=== PATIENT | male | born 1950 | race Caucasian/White ===

== ENCOUNTER 2020-07-29 09:40 | Inpatient (IN) | payer MEDICAID ==
[~2020-07-29] VITALS: Ht 162.6 cm; Wt 49.5 kg
[2020-07-29] MEDS ORDERED: ONDANSETRON HCL 4MG/2ML INJ IV STA (10:19)
[2020-07-29] MEDS ORDERED: SODIUM CHLORIDE 0.9% 1,000 ML IV ONE (10:30)
[2020-07-29] MEDS ORDERED: MECLIZINE 25MG TABLET PO ONE (10:30)
[2020-07-29 11:10] LABS: BASOPHILS % 0.8 % (0.0-2.0); EOSINOPHILS % 3.6 % (0.0-5.0); HEMOGLOBIN. 14.6 g/dL (14.0-18.0); LYMPHOCYTES % 16.4 % (20.0-50.0); MEAN CORPUSCULAR HEMOGLOBIN 31.4 pg (28.0-32.0); MEAN CORPUSCULAR VOLUME 92.7 fL (80.0-94.0); MEAN PLATELET VOLUME 7.6 fl (7.4-10.4); MONOCYTES % 5.6 % (2.0-8.0); NEUTROPHILS % 73.6 % (40.0-76.0); PLATELET 354 x1000/uL (130-400); RED BLOOD CELL COUNT 4.64 mill/uL (4.7-6.1); RED CELL DISTRIBUTION WIDTH 12.8 % (11.6-14.6)
[2020-07-29 11:19] LABS: CHLORIDE 111 mEq/L (98-107)
[2020-07-29 11:23] LABS: ETHANOL BLOOD < 10 mg/dL
[2020-07-29 21:01] LABS: CLARITY URINE CLEAR (CLEAR); COLOR URINE YELLOW (YELLOW); KETONES URINE NEGATIVE (NEGATIVE); LEUKOCYTE ESTERASE URINE NEGATIVE (NEGATIVE); NITRITE URINE NEGATIVE (NEGATIVE); OCCULT BLOOD URINE NEGATIVE (NEGATIVE); PH URINE 7.5 (4.5-8.0); PROTEIN URINE 3+ (NEGATIVE); SPECIFIC GRAVITY URINE 1.017 (1.005-1.030); UROBILINOGEN URINE 0.2 E.U./dL (0.2-1.0)
[2020-07-29 21:17] LABS: *AMPHETAMINES SCREEN URINE NEGATIVE (NEGATIVE); *BARBITURATES SCREEN URINE NEGATIVE (NEGATIVE)
[2020-07-29 21:18] LABS: *BENZODIAZEPINES SCREEN URINE NEGATIVE (NEGATIVE); *COCAINE SCREEN URINE NEGATIVE (NEGATIVE); CANNABINOID URINE SCREEN NEGATIVE (NEGATIVE); METHADONE URINE SCREEN NEGATIVE (NEGATIVE); OPIATES URINE SCREEN NEGATIVE (NEGATIVE); PHENCYCLIDINE URINE SCREEN NEGATIVE (NEGATIVE)
[2020-07-30] VITALS (10 sets, daily range): BP systolic 139–183; BP diastolic 69–100
[2020-07-30] MEDS ORDERED: ATOR-2 PO (04:32)
[2020-07-30] MEDS ORDERED: ASPI-867 MT (04:39)
[2020-07-30] MEDS ORDERED: HYDR25TA PO (04:39)
[2020-07-30] MEDS ORDERED: NIFE-33 PO (04:39)
[2020-07-30] MEDS ORDERED: AMLO-79 MT (04:39)
[2020-07-30] MEDS ORDERED: METO100T16 MT (04:39)
[2020-07-30] MEDS ORDERED: LISI40TA13 PO (04:39)
[2020-07-30] MEDS ORDERED: CLOP75TA33 PO (04:39)
[2020-07-30] MEDS ORDERED: *PATIENT'S OWN MEDICATION STORAGE XX SCH (05:30)
[2020-07-30] MEDS ORDERED: DIPHENHYDRAMINE 50MG CAPSULE PO PRN (06:00)
[2020-07-30] MEDS ORDERED: PNEUMOCOCCAL 23-VAL P-SAC VAC 0.5 ML IM ONE (08:00)
[2020-07-30] MEDS: ASPIRIN 81MG TABLET PO SCH (08:41)
[2020-07-30] MEDS: AMLODIPINE 10MG TABLET PO SCH (08:42)
[2020-07-30] MEDS: LISINOPRIL 40MG TABLET PO SCH (08:42)
[2020-07-30] MEDS: ENOXAPARIN 40MG/0.4ML SYR SUBCUT SCH (08:42)
[2020-07-30] MEDS ORDERED: ASPIRIN 81MG TABLET PO SCH (09:00)
[2020-07-30 09:31] LABS: BASOPHILS % 0.8 % (0.0-2.0); EOSINOPHILS % 1.9 % (0.0-5.0); HEMATOCRIT. 41.4 % (42.0-52.0); HEMOGLOBIN. 14.1 g/dL (14.0-18.0); LYMPHOCYTES % 19.8 % (20.0-50.0); MEAN CORPUSCULAR HEMOGLOBIN 31.4 pg (28.0-32.0); MEAN CORPUSCULAR VOLUME 92.1 fL (80.0-94.0); MEAN PLATELET VOLUME 7.5 fl (7.4-10.4); MONOCYTES % 6.4 % (2.0-8.0); NEUTROPHILS % 71.1 % (40.0-76.0); PLATELET 351 x1000/uL (130-400); RED CELL DISTRIBUTION WIDTH 12.8 % (11.6-14.6)
[2020-07-30 09:39] LABS: CHLORIDE 112 mEq/L (98-107)
[2020-07-30] MEDS ORDERED: INFLUENZA VACCINE 05/PF 0.5 ML VIAL IM ONE (10:00)
[2020-07-30] MEDS: HYDRALAZINE HCL 25MG TABLET PO SCH ×2 (10:43→21:41)
[2020-07-30] MEDS: HYDRALAZINE 20MG/ML VIAL IV PRN (12:14)
[2020-07-30] MEDS: ATORVASTATIN CALCIUM 40MG TABLET PO SCH (21:41)
[2020-07-31] VITALS (15 sets, daily range): BP systolic 131–169; BP diastolic 66–103
[2020-07-31] MEDS: HYDRALAZINE 20MG/ML VIAL IV PRN ×2 (03:48→15:34)
[2020-07-31] MEDS: ACETAMINOPHEN 325MG TABLET PO PRN (05:53)
[2020-07-31] MEDS: ONDANSETRON HCL 4MG/2ML INJ IV PRN (05:54)
[2020-07-31] MEDS: ENOXAPARIN 40MG/0.4ML SYR SUBCUT SCH (09:00)
[2020-07-31 09:21] LABS: BASOPHILS % 0.6 % (0.0-2.0); EOSINOPHILS % 0.5 % (0.0-5.0); HEMATOCRIT. 44.7 % (42.0-52.0); HEMOGLOBIN. 14.8 g/dL (14.0-18.0); LYMPHOCYTES % 9.6 % (20.0-50.0); MEAN CORPUSCULAR HEMOGLOBIN 30.6 pg (28.0-32.0); MEAN CORPUSCULAR VOLUME 92.6 fL (80.0-94.0); MEAN PLATELET VOLUME 7.8 fl (7.4-10.4); MONOCYTES % 5.5 % (2.0-8.0); NEUTROPHILS % 83.8 % (40.0-76.0); PLATELET 355 x1000/uL (130-400); RED BLOOD CELL COUNT 4.83 mill/uL (4.7-6.1); RED CELL DISTRIBUTION WIDTH 12.9 % (11.6-14.6)
[2020-07-31 09:33] LABS: INR 1.1; PROTHROMBIN TIME 11.3 sec (9.6-11.0)
[2020-07-31 09:39] LABS: BG BASE EXCESS -1.3 mmol/L (-2.0-2.0); BG CARBOXYHEMOGLOBIN 0.9 % (0.5-1.5); BG HCO3 ACT 23.2 mmol/L (22.0-26.0); BG METHEMOGLOBIN 0.3 % (0.0-1.5); BG OXYHEMOGLOBIN 96.8 % (94.0-97.0); BG PCO2 38.4 mmHg (35.0-45.0); BG PH 7.399 (7.350-7.450); BG SAMPLE SITE RIGHT RADIAL; BG TOTAL HEMOGLOBIN 15.7 g/dL (12.0-18.0); BG VENT MODE ROOM AIR
[2020-07-31] MEDS: ASPIRIN 81MG TABLET PO SCH (11:30)
[2020-07-31] MEDS: HYDRALAZINE HCL 25MG TABLET PO SCH ×2 (11:30→20:59)
[2020-07-31] MEDS: LISINOPRIL 40MG TABLET PO SCH (11:30)
[2020-07-31] MEDS: AMLODIPINE 10MG TABLET PO SCH (11:30)
[2020-07-31] MEDS: BLOOD SUGAR DIAGNOSTIC STRIP TEST SCH ×3 (12:12→20:59)
[2020-07-31] MEDS: DEXT 5%/0.45% NACL 1000ML 1,000 ML IV SCH (19:00)
[2020-07-31] MEDS: ATORVASTATIN CALCIUM 40MG TABLET PO SCH (20:59)
[2020-07-31] MEDS: METOPROLOL TARTRATE 5MG/5ML VIAL IV SCH ×2 (23:31→23:33)
[2020-08-01] VITALS (17 sets, daily range): BP systolic 121–177; BP diastolic 68–113
[2020-08-01] MEDS: METOPROLOL TARTRATE 5MG/5ML VIAL IV SCH ×5 (05:22→21:28)
[2020-08-01] MEDS: BLOOD SUGAR DIAGNOSTIC STRIP TEST SCH ×4 (06:08→21:40)
[2020-08-01] MEDS: DEXT 5%/0.45% NACL 1000ML 1,000 ML IV SCH ×2 (08:17→21:31)
[2020-08-01 08:55] LABS: CHLORIDE 109 mEq/L (98-107)
[2020-08-01] MEDS: HYDRALAZINE HCL 25MG TABLET PO SCH ×2 (09:00→21:00)
[2020-08-01] MEDS: LISINOPRIL 40MG TABLET PO SCH (09:00)
[2020-08-01] MEDS: AMLODIPINE 10MG TABLET PO SCH (09:00)
[2020-08-01] MEDS: ASPIRIN 81MG TABLET PO SCH (09:00)
[2020-08-01] MEDS: CLOPIDOGREL 75MG TABLET PO SCH (09:00)
[2020-08-01 09:41] LABS: CLARITY URINE CLEAR (CLEAR); COLOR URINE YELLOW (YELLOW); KETONES URINE NEGATIVE (NEGATIVE); LEUKOCYTE ESTERASE URINE TRACE (NEGATIVE); NITRITE URINE NEGATIVE (NEGATIVE); OCCULT BLOOD URINE 3+ (NEGATIVE); PH URINE 6.5 (4.5-8.0); PROTEIN URINE 3+ (NEGATIVE); SPECIFIC GRAVITY URINE 1.016 (1.005-1.030); UROBILINOGEN URINE 0.2 E.U./dL (0.2-1.0)
[2020-08-01] MEDS: ENOXAPARIN 40MG/0.4ML SYR SUBCUT SCH (12:49)
[2020-08-01] MEDS: LACTULOSE 20G/30ML UDC PO SCH ×2 (16:46→22:00)
[2020-08-01 17:57] LABS: BASOPHILS % 0.5 % (0.0-2.0); EOSINOPHILS % 0.1 % (0.0-5.0); HEMATOCRIT. 43.3 % (42.0-52.0); HEMOGLOBIN. 14.4 g/dL (14.0-18.0); LYMPHOCYTES % 7.6 % (20.0-50.0); MEAN CORPUSCULAR HEMOGLOBIN 30.8 pg (28.0-32.0); MEAN CORPUSCULAR VOLUME 92.8 fL (80.0-94.0); MONOCYTES % 4.5 % (2.0-8.0); NEUTROPHILS % 87.3 % (40.0-76.0); PLATELET 330 x1000/uL (130-400); RED BLOOD CELL COUNT 4.67 mill/uL (4.7-6.1); RED CELL DISTRIBUTION WIDTH 12.7 % (11.6-14.6)
[2020-08-01 18:10] LABS: CHLORIDE 107 mEq/L (98-107)
[2020-08-01] MEDS: ATORVASTATIN CALCIUM 40MG TABLET PO SCH (21:00)
[2020-08-02] VITALS (42 sets, daily range): BP systolic 78–205; BP diastolic 45–108
[2020-08-02] MEDS: METOPROLOL TARTRATE 5MG/5ML VIAL IV SCH ×6 (01:49→20:00)
[2020-08-02] MEDS: HYDRALAZINE 20MG/ML VIAL IV PRN (03:34)
[2020-08-02] MEDS: LACTULOSE 20G/30ML UDC PO SCH (06:00)
[2020-08-02] MEDS: BLOOD SUGAR DIAGNOSTIC STRIP TEST SCH ×4 (06:26→21:00)
[2020-08-02 08:41] LABS: BG BASE EXCESS -1.8 mmol/L (-2.0-2.0); BG CARBOXYHEMOGLOBIN 0.8 % (0.5-1.5); BG DEOXYHEMOGLOBIN 2.6 % (0.0-5.0); BG FRACTION INSPIRED OXYGEN 28; BG HCO3 ACT 23.9 mmol/L (22.0-26.0); BG METHEMOGLOBIN 0.3 % (0.0-1.5); BG OXYGEN SATURATION 97.4 % (92.0-98.5); BG OXYHEMOGLOBIN 96.3 % (94.0-97.0); BG PCO2 43.6 mmHg (35.0-45.0); BG PH 7.356 (7.350-7.450); BG PO2 94.4 mmHg (75.0-100.0); BG SAMPLE SITE RIGHT RADIAL; BG TOTAL HEMOGLOBIN 15.2 g/dL (12.0-18.0); BG VENT MODE NASAL CANNULA
[2020-08-02] MEDS: ENOXAPARIN 40MG/0.4ML SYR SUBCUT SCH (09:00)
[2020-08-02] MEDS: LISINOPRIL 40MG TABLET PO SCH (09:00)
[2020-08-02] MEDS: ASPIRIN 81MG TABLET PO SCH (09:00)
[2020-08-02] MEDS: CLOPIDOGREL 75MG TABLET PO SCH (09:00)
[2020-08-02] MEDS: AMLODIPINE 10MG TABLET PO SCH (09:00)
[2020-08-02] MEDS: HYDRALAZINE HCL 25MG TABLET PO SCH ×2 (09:00→20:42)
[2020-08-02 10:53] LABS: HEMATOCRIT. 43.9 % (42.0-52.0); HEMOGLOBIN. 14.6 g/dL (14.0-18.0); MEAN CORPUSCULAR HEMOGLOBIN 31.2 pg (28.0-32.0); MEAN CORPUSCULAR VOLUME 93.9 fL (80.0-94.0); MEAN PLATELET VOLUME 8.5 fl (7.4-10.4); PLATELET 315 x1000/uL (130-400); RED BLOOD CELL COUNT 4.68 mill/uL (4.7-6.1); RED CELL DISTRIBUTION WIDTH 12.7 % (11.6-14.6)
[2020-08-02 10:55] LABS: CHLORIDE 107 mEq/L (98-107)
[2020-08-02] MEDS ORDERED: IOHEXOL-350 100 ML BOTTLE ONE (13:58)
[2020-08-02] MEDS: DEXT 5%/0.45% NACL 1000ML 1,000 ML IV SCH (14:05)
[2020-08-02] MEDS: PIPERACILLIN/TAZOBACTAM 3.375 G in DEXT 5% WATER 100 ML IV SCH ×2 (14:05→18:43)
[2020-08-02 14:24] LABS: PLATELET ESTIMATE NORMAL
[2020-08-02] MEDS ORDERED: LORAZEPAM 2MG/ML CPJ IV PRN (15:15)
[2020-08-02] MEDS: CLONIDINE HCL 0.2MG/24HR PATCH TD SCH (16:00)
[2020-08-02] MEDS ORDERED: RACEPINEPHRINE 2.25% 0.5ML NEB VIAL HHN NR ×2 (16:00→17:00)
[2020-08-02 16:09] LABS: BG BASE EXCESS -1.7 mmol/L (-2.0-2.0); BG CARBOXYHEMOGLOBIN 0.3 % (0.5-1.5); BG DEOXYHEMOGLOBIN 0.8 % (0.0-5.0); BG HCO3 ACT 29.5 mmol/L (22.0-26.0); BG METHEMOGLOBIN 0.4 % (0.0-1.5); BG OXYGEN SATURATION 99.2 % (92.0-98.5); BG OXYHEMOGLOBIN 98.5 % (94.0-97.0); BG PCO2 82.7 mmHg (35.0-45.0); BG PO2 243.1 mmHg (75.0-100.0); BG SAMPLE SITE RIGHT BRACHIAL; BG TOTAL HEMOGLOBIN 15.5 g/dL (12.0-18.0); BG VENT MODE MASK - NRB
[2020-08-02] MEDS ORDERED: RACEPINEPHRINE 2.25% 0.5ML NEB VIAL ONE (16:11)
[2020-08-02] MEDS ORDERED: RACEPINEPHRINE 2.25% 0.5ML NEB VIAL HHN ONE (16:45)
[2020-08-02] MEDS ORDERED: DEXAMETHASONE 10 MG/ML VIAL IV NR (16:45)
[2020-08-02] MEDS: MIDAZOLAM HCL 100 MG in DEXT 5% WATER 80 ML IV PRN (17:00)
[2020-08-02] MEDS: FENTANYL CITRATE/PF 2,500 MCG in SODIUM CHLORIDE 0.9% 200 ML IV PRN (17:01)
[2020-08-02 17:04] LABS: BG BASE EXCESS 1.3 mmol/L (-2.0-2.0); BG CARBOXYHEMOGLOBIN 0.3 % (0.5-1.5); BG DEOXYHEMOGLOBIN 0.6 % (0.0-5.0); BG HCO3 ACT 27.7 mmol/L (22.0-26.0); BG METHEMOGLOBIN 0.1 % (0.0-1.5); BG OXYGEN SATURATION 99.4 % (92.0-98.5); BG PCO2 50.7 mmHg (35.0-45.0); BG PH 7.356 (7.350-7.450); BG PO2 441.3 mmHg (75.0-100.0); BG SAMPLE SITE RIGHT RADIAL; BG TOTAL HEMOGLOBIN 14.5 g/dL (12.0-18.0); BG VENT MODE VENT - AC
[2020-08-02] MEDS ORDERED: PHENYLEPHRINE 100 MG in DEXT 5% WATER 240 ML IV PRN (17:15)
[2020-08-02] MEDS ORDERED: NOREPINEPHRINE 32 MG in DEXT 5% WATER 218 ML IV PRN (17:15)
[2020-08-02] MEDS: METHYLPREDNISOLONE SOD SUCC 125 MG/2 ML VIAL IV SCH (18:43)
[2020-08-02] MEDS ORDERED: DOPAMINE 400MG/250ML PREMIX 250 ML IV ONE (20:14)
[2020-08-02] MEDS ORDERED: DOPAMINE 400MG/250ML PREMIX 250 ML IV PRN (20:45)
[2020-08-02] MEDS ORDERED: LACTULOSE 20G/30ML UDC PO SCH ×2 (21:00)
[2020-08-02] MEDS: ACETYLCYSTEINE 100MG/ML 10% VIAL 4ML INH SCH (21:41)
[2020-08-02] MEDS: IPRATROPIUM/ALBUTEROL 0.5-3(2.5)MG/3ML NEB HHN SCH (21:43)
[2020-08-02] MEDS: ATORVASTATIN CALCIUM 40MG TABLET PO SCH (23:50)
[2020-08-03] VITALS (70 sets, daily range): BP systolic 89–208; BP diastolic 56–96
[2020-08-03] MEDS: METHYLPREDNISOLONE SOD SUCC 125 MG/2 ML VIAL IV SCH ×4 (00:30→18:08)
[2020-08-03] MEDS: IPRATROPIUM/ALBUTEROL 0.5-3(2.5)MG/3ML NEB HHN SCH ×4 (01:37→21:12)
[2020-08-03] MEDS: PIPERACILLIN/TAZOBACTAM 3.375 G in DEXT 5% WATER 100 ML IV SCH ×4 (02:27→18:06)
[2020-08-03] MEDS: METOPROLOL TARTRATE 5MG/5ML VIAL IV SCH ×6 (04:00→20:00)
[2020-08-03] MEDS: BLOOD SUGAR DIAGNOSTIC STRIP TEST SCH ×3 (07:30→18:06)
[2020-08-03 07:46] LABS: HEMOGLOBIN. 13.5 g/dL (14.0-18.0); MEAN CORPUSCULAR HEMOGLOBIN 31.4 pg (28.0-32.0); MEAN PLATELET VOLUME 8.4 fl (7.4-10.4); PLATELET 286 x1000/uL (130-400); RED CELL DISTRIBUTION WIDTH 12.5 % (11.6-14.6)
[2020-08-03] MEDS: ENOXAPARIN 40MG/0.4ML SYR SUBCUT SCH (08:35)
[2020-08-03] MEDS: CLOPIDOGREL 75MG TABLET PO SCH (08:35)
[2020-08-03] MEDS: ASPIRIN 81MG TABLET PO SCH (08:35)
[2020-08-03] MEDS: ACETYLCYSTEINE 100MG/ML 10% VIAL 4ML INH SCH ×3 (08:40→11:36)
[2020-08-03] MEDS: DEXT 5%/0.45% NACL 1000ML 1,000 ML IV SCH ×2 (08:48→12:41)
[2020-08-03] MEDS: AMLODIPINE 10MG TABLET PO SCH (08:50)
[2020-08-03] MEDS: HYDRALAZINE HCL 25MG TABLET PO SCH ×2 (08:50→21:00)
[2020-08-03] MEDS ORDERED: LIDOCAINE HCL 1% 20ML VIAL (Pyxis) INJ ONE (10:11)
[2020-08-03 12:27] LABS: BG CARBOXYHEMOGLOBIN 0.3 % (0.5-1.5); BG DEOXYHEMOGLOBIN 1.2 % (0.0-5.0); BG FRACTION INSPIRED OXYGEN 40; BG METHEMOGLOBIN 0.3 % (0.0-1.5); BG OXYGEN SATURATION 98.8 % (92.0-98.5); BG OXYHEMOGLOBIN 98.2 % (94.0-97.0); BG PCO2 41.2 mmHg (35.0-45.0); BG PH 7.383 (7.350-7.450); BG PO2 141.2 mmHg (75.0-100.0); BG SAMPLE SITE RIGHT RADIAL; BG TOTAL HEMOGLOBIN 13.6 g/dL (12.0-18.0); BG VENT MODE VENT - AC
[2020-08-03] MEDS: SODIUM CHLORIDE 0.45% 1,000 ML IV SCH (18:08)
[2020-08-03] MEDS: FENTANYL CITRATE/PF 2,500 MCG in SODIUM CHLORIDE 0.9% 200 ML IV PRN (18:58)
[2020-08-03] MEDS: ATORVASTATIN CALCIUM 40MG TABLET PO SCH (21:12)
[2020-08-04] VITALS (47 sets, daily range): BP systolic 80–132; BP diastolic 44–77
[2020-08-04 00:15] LABS: PLATELET ESTIMATE NORMAL
[2020-08-04] MEDS: METHYLPREDNISOLONE SOD SUCC 125 MG/2 ML VIAL IV SCH ×4 (00:25→18:53)
[2020-08-04] MEDS: PIPERACILLIN/TAZOBACTAM 3.375 G in DEXT 5% WATER 100 ML IV SCH ×2 (00:25→05:51)
[2020-08-04] MEDS: IPRATROPIUM/ALBUTEROL 0.5-3(2.5)MG/3ML NEB HHN SCH ×4 (02:48→21:00)
[2020-08-04] MEDS: BLOOD SUGAR DIAGNOSTIC STRIP TEST SCH ×4 (06:00→18:40)
[2020-08-04] MEDS: SODIUM CHLORIDE 0.45% 1,000 ML IV SCH ×2 (06:02→19:40)
[2020-08-04 06:37] LABS: HEMATOCRIT. 35.9 % (42.0-52.0); HEMOGLOBIN. 12.2 g/dL (14.0-18.0); MEAN CORPUSCULAR HEMOGLOBIN 31.9 pg (28.0-32.0); MEAN PLATELET VOLUME 8.3 fl (7.4-10.4); PLATELET 325 x1000/uL (130-400); RED BLOOD CELL COUNT 3.82 mill/uL (4.7-6.1); RED CELL DISTRIBUTION WIDTH 12.9 % (11.6-14.6)
[2020-08-04] MEDS: METOPROLOL TARTRATE 5MG/5ML VIAL IV SCH ×5 (08:00→20:00)
[2020-08-04] MEDS: HYDRALAZINE HCL 25MG TABLET PO SCH ×2 (08:57→21:00)
[2020-08-04] MEDS: AMLODIPINE 10MG TABLET PO SCH (08:58)
[2020-08-04] MEDS: ENOXAPARIN 40MG/0.4ML SYR SUBCUT SCH (09:09)
[2020-08-04] MEDS: ASPIRIN 81MG TABLET PO SCH (09:28)
[2020-08-04] MEDS: FENTANYL CITRATE/PF 2,500 MCG in SODIUM CHLORIDE 0.9% 200 ML IV PRN (12:40)
[2020-08-04] MEDS: MIDAZOLAM HCL 100 MG in DEXT 5% WATER 80 ML IV PRN (12:41)
[2020-08-04 13:43] LABS: BG CARBOXYHEMOGLOBIN 0.3 % (0.5-1.5); BG DEOXYHEMOGLOBIN 1.4 % (0.0-5.0); BG FRACTION INSPIRED OXYGEN 40; BG HCO3 ACT 23.1 mmol/L (22.0-26.0); BG OXYGEN SATURATION 98.6 % (92.0-98.5); BG OXYHEMOGLOBIN 98.3 % (94.0-97.0); BG PH 7.328 (7.350-7.450); BG PO2 148.5 mmHg (75.0-100.0); BG SAMPLE SITE RIGHT RADIAL; BG TOTAL HEMOGLOBIN 14.5 g/dL (12.0-18.0); BG VENT MODE VENT - AC
[2020-08-04] MEDS: PIPERACILLIN/TAZOBACTAM 2.25 G in DEXTROSE 5% WATER 50 ML IV SCH ×2 (14:02→18:54)
[2020-08-04] MEDS: ENOXAPARIN 30MG/0.3ML SYR SUBCUT SCH (19:40)
[2020-08-04 20:30] LABS: HEMATOCRIT 36.2 % (42.0-52.0); HEMOGLOBIN 12.1 g/dL (14.0-18.0); MEAN CORPUSCULAR HEMOGLOBIN 30.9 pg (28.0-32.0); PLATELET 341 x1000/uL (130-400); RED CELL DISTRIBUTION WIDTH 12.6 % (11.6-14.6)
[2020-08-04 20:45] LABS: CHLORIDE 102 mEq/L (98-107)
[2020-08-04 20:58] LABS: PLATELET ESTIMATE NORMAL
[2020-08-04] MEDS: ATORVASTATIN CALCIUM 40MG TABLET PO SCH (21:39)
[2020-08-05] VITALS (66 sets, daily range): BP systolic 86–161; BP diastolic 48–96
[2020-08-05] MEDS: BLOOD SUGAR DIAGNOSTIC STRIP TEST SCH ×5 (00:43→20:55)
[2020-08-05] MEDS: PIPERACILLIN/TAZOBACTAM 2.25 G in DEXTROSE 5% WATER 50 ML IV SCH ×4 (01:03→17:59)
[2020-08-05] MEDS: METHYLPREDNISOLONE SOD SUCC 125 MG/2 ML VIAL IV SCH ×4 (01:03→17:59)
[2020-08-05] MEDS: ACETYLCYSTEINE 100MG/ML 10% VIAL 4ML INH SCH ×2 (03:32→09:31)
[2020-08-05] MEDS: METOPROLOL TARTRATE 5MG/5ML VIAL IV SCH ×6 (03:32→20:00)
[2020-08-05] MEDS: IPRATROPIUM/ALBUTEROL 0.5-3(2.5)MG/3ML NEB HHN SCH ×3 (03:33→20:39)
[2020-08-05 06:15] LABS: HEMATOCRIT. 33.7 % (42.0-52.0); HEMOGLOBIN. 11.5 g/dL (14.0-18.0); MEAN CORPUSCULAR HEMOGLOBIN 31.7 pg (28.0-32.0); MEAN CORPUSCULAR VOLUME 93.1 fL (80.0-94.0); MEAN PLATELET VOLUME 8.3 fl (7.4-10.4); PLATELET 308 x1000/uL (130-400); RED BLOOD CELL COUNT 3.62 mill/uL (4.7-6.1); RED CELL DISTRIBUTION WIDTH 12.7 % (11.6-14.6)
[2020-08-05 06:19] LABS: INR 1.1; PROTHROMBIN TIME 11.9 sec (9.6-11.0)
[2020-08-05 07:53] LABS: CHLORIDE 102 mEq/L (98-107)
[2020-08-05] MEDS: FENTANYL CITRATE/PF 2,500 MCG in SODIUM CHLORIDE 0.9% 200 ML IV PRN ×2 (08:04→18:11)
[2020-08-05] MEDS: SODIUM CHLORIDE 0.45% 1,000 ML IV SCH ×2 (08:30→22:48)
[2020-08-05] MEDS: HYDRALAZINE HCL 25MG TABLET PO SCH ×2 (08:34→20:55)
[2020-08-05] MEDS: ASPIRIN 81MG TABLET PO SCH (08:34)
[2020-08-05] MEDS: AMLODIPINE 10MG TABLET PO SCH (08:34)
[2020-08-05 10:26] LABS: SODIUM URINE RANDOM < 5 mEq/L
[2020-08-05] MEDS ORDERED: CEFAZOLIN 1000MG PREMIX 50 ML IV NR (12:00)
[2020-08-05] MEDS ORDERED: MIDAZOLAM HCL 5 MG/5 ML VIAL ONE (14:37)
[2020-08-05] MEDS ORDERED: FENTANYL CITRATE/PF 50MCG/ML 2ML VIAL ONE (14:37)
[2020-08-05] MEDS ORDERED: DIPHENHYDRAMINE 50MG/ML VIAL ONE (14:37)
[2020-08-05 14:47] LABS: PLATELET ESTIMATE NORMAL
[2020-08-05] MEDS ORDERED: DEXTROSE 50% WATER 50ML SYRINGE IV PRN (17:00)
[2020-08-05] MEDS: INSULIN LISPRO 100 UNITS/ML SUBCUT SCH ×2 (18:01→20:55)
[2020-08-05] MEDS: MIDAZOLAM HCL 100 MG in DEXT 5% WATER 80 ML IV PRN (18:12)
[2020-08-05] MEDS: ATORVASTATIN CALCIUM 40MG TABLET PO SCH (20:53)
[2020-08-06] VITALS (96 sets, daily range): BP systolic 90–159; BP diastolic 47–83
[2020-08-06] MEDS: PIPERACILLIN/TAZOBACTAM 2.25 G in DEXTROSE 5% WATER 50 ML IV SCH ×5 (00:37→23:56)
[2020-08-06] MEDS: METHYLPREDNISOLONE SOD SUCC 125 MG/2 ML VIAL IV SCH ×5 (00:37→23:53)
[2020-08-06] MEDS: IPRATROPIUM/ALBUTEROL 0.5-3(2.5)MG/3ML NEB HHN SCH ×3 (01:43→20:33)
[2020-08-06] MEDS: ACETYLCYSTEINE 100MG/ML 10% VIAL 4ML INH SCH ×2 (01:43→08:28)
[2020-08-06] MEDS: METOPROLOL TARTRATE 5MG/5ML VIAL IV SCH ×6 (04:00→20:00)
[2020-08-06] MEDS: METOCLOPRAMIDE HCL 10MG/2ML VIAL IV SCH ×4 (05:41→23:55)
[2020-08-06 06:12] LABS: HEMATOCRIT. 33.1 % (42.0-52.0); HEMOGLOBIN. 11.2 g/dL (14.0-18.0); MEAN CORPUSCULAR HEMOGLOBIN 31.3 pg (28.0-32.0); MEAN CORPUSCULAR VOLUME 92.8 fL (80.0-94.0); MEAN PLATELET VOLUME 8.1 fl (7.4-10.4); PLATELET 317 x1000/uL (130-400); RED BLOOD CELL COUNT 3.56 mill/uL (4.7-6.1); RED CELL DISTRIBUTION WIDTH 12.8 % (11.6-14.6)
[2020-08-06 06:33] LABS: CHLORIDE 105 mEq/L (98-107)
[2020-08-06 06:39] LABS: PHOSPHORUS 4.9 mg/dL (2.5-4.9)
[2020-08-06] MEDS: BLOOD SUGAR DIAGNOSTIC STRIP TEST SCH ×4 (08:00→20:33)
[2020-08-06] MEDS: ENOXAPARIN 30MG/0.3ML SYR SUBCUT SCH (08:25)
[2020-08-06] MEDS: ASPIRIN 81MG TABLET PO SCH ×2 (08:25→09:00)
[2020-08-06] MEDS: INSULIN LISPRO 100 UNITS/ML SUBCUT SCH ×4 (08:26→20:50)
[2020-08-06] MEDS: HYDRALAZINE HCL 25MG TABLET PO SCH ×2 (08:28→20:49)
[2020-08-06] MEDS: AMLODIPINE 10MG TABLET PO SCH (08:28)
[2020-08-06] MEDS: SODIUM CHLORIDE 0.45% 1,000 ML IV SCH (12:30)
[2020-08-06] MEDS ORDERED: MORPHINE SULFATE 10 MG/ML CPJ IV NR (13:00)
[2020-08-06] MEDS ORDERED: LEVETIRACETAM 500 MG in SODIUM CHLORIDE 0.9% 100 ML IV SCH (13:45)
[2020-08-06] MEDS ORDERED: MORPHINE SULFATE 4 MG/ML CPJ (NOT FOR IM USE) IV PRN (13:45)
[2020-08-06] MEDS ORDERED: CEFAZOLIN SODIUM 1000MG/VIAL IV SCH (14:00)
[2020-08-06] MEDS: DEXT 5%/LACTATED RINGERS 1,000 ML IV SCH (14:44)
[2020-08-06 14:52] LABS: PLATELET ESTIMATE NORMAL
[2020-08-06] MEDS: PROPOFOL 10MG/ML 100ML 100 ML IV PRN ×2 (15:28→20:33)
[2020-08-06] MEDS: NICARDIPINE 100 MG in SODIUM CHLORIDE 0.9% 60 ML IV PRN (15:35)
[2020-08-06] MEDS: DEXAMETHASONE 4MG/ML 1ML VIAL IV SCH ×2 (17:01→23:55)
[2020-08-06] MEDS: LEVETIRACETAM 500MG PREMIX 100 ML IV SCH ×2 (17:05→22:53)
[2020-08-06] MEDS: ATORVASTATIN CALCIUM 40MG TABLET PO SCH (20:33)
[2020-08-07] VITALS (70 sets, daily range): BP systolic 103–156; BP diastolic 38–95
[2020-08-07] MEDS: ACETYLCYSTEINE 100MG/ML 10% VIAL 4ML INH SCH ×2 (01:59→09:08)
[2020-08-07] MEDS: IPRATROPIUM/ALBUTEROL 0.5-3(2.5)MG/3ML NEB HHN SCH ×3 (01:59→21:40)
[2020-08-07] MEDS: METOPROLOL TARTRATE 5MG/5ML VIAL IV SCH ×7 (04:00→22:23)
[2020-08-07] MEDS: PROPOFOL 10MG/ML 100ML 100 ML IV PRN ×3 (04:43→19:56)
[2020-08-07 05:22] LABS: PHOSPHORUS 3.3 mg/dL (2.5-4.9)
[2020-08-07] MEDS: DEXAMETHASONE 4MG/ML 1ML VIAL IV SCH ×3 (06:01→17:27)
[2020-08-07] MEDS: PIPERACILLIN/TAZOBACTAM 2.25 G in DEXTROSE 5% WATER 50 ML IV SCH (06:03)
[2020-08-07] MEDS: METOCLOPRAMIDE HCL 10MG/2ML VIAL IV SCH ×3 (06:03→17:27)
[2020-08-07] MEDS: METHYLPREDNISOLONE SOD SUCC 125 MG/2 ML VIAL IV SCH ×3 (06:04→17:26)
[2020-08-07 06:14] LABS: HEMATOCRIT. 32.2 % (42.0-52.0); HEMOGLOBIN. 10.8 g/dL (14.0-18.0); MEAN CORPUSCULAR HEMOGLOBIN 31.3 pg (28.0-32.0); MEAN CORPUSCULAR VOLUME 93.2 fL (80.0-94.0); MEAN PLATELET VOLUME 8.3 fl (7.4-10.4); PLATELET 308 x1000/uL (130-400); RED BLOOD CELL COUNT 3.46 mill/uL (4.7-6.1); RED CELL DISTRIBUTION WIDTH 12.8 % (11.6-14.6)
[2020-08-07] MEDS: BLOOD SUGAR DIAGNOSTIC STRIP TEST SCH ×4 (07:50→21:55)
[2020-08-07] MEDS: DEXT 5%/LACTATED RINGERS 1,000 ML IV SCH ×2 (07:54→22:24)
[2020-08-07 08:15] LABS: *CREATININE RANDOM URINE 60.5 mg/dL (Not Estab.); MICROALBUMIN RANDOM URINE 27.1 ug/mL (Not Estab.)
[2020-08-07] MEDS: HYDRALAZINE HCL 25MG TABLET PO SCH ×3 (08:15→21:00)
[2020-08-07] MEDS: AMLODIPINE 10MG TABLET PO SCH ×2 (08:15→08:32)
[2020-08-07] MEDS: LEVETIRACETAM 500MG PREMIX 100 ML IV SCH ×2 (08:27→22:23)
[2020-08-07] MEDS: INSULIN LISPRO 100 UNITS/ML SUBCUT SCH ×4 (08:29→21:56)
[2020-08-07] MEDS ORDERED: BACITRACIN 50,000 UNITS/VIAL ONE (11:32)
[2020-08-07] MEDS ORDERED: SODIUM CHLORIDE 0.9% IRRIG SOL 2,000 ML IR ONE (11:32)
[2020-08-07] MEDS ORDERED: SODIUM CHLORIDE 0.9% INJ 10ML FLUSH IVF ONE (11:32)
[2020-08-07] MEDS ORDERED: THROMBIN (BOVINE) 5000 UNITS/VIAL TOP ONE (11:32)
[2020-08-07] MEDS ORDERED: LACTATED RINGERS 3,000 ML IV ONE (11:32)
[2020-08-07] MEDS ORDERED: BACITRACIN 15GM TUBE TOP ONE (11:33)
[2020-08-07] MEDS ORDERED: ROCURONIUM BROMIDE 10MG/ML VIAL 5ML IV ONE (12:31)
[2020-08-07] MEDS ORDERED: CEFAZOLIN SODIUM 1000MG/VIAL ONE (13:09)
[2020-08-07] MEDS ORDERED: DEXAMETHASONE 4MG/ML 1ML VIAL ONE ×2 (13:15→13:17)
[2020-08-07] MEDS ORDERED: ALBUMIN HUMAN 25GM/100ML (25%) IV ONE (13:18)
[2020-08-07] MEDS ORDERED: HYDROMORPHONE HCL/PF 2MG/ML (OR) ONE (13:23)
[2020-08-07] MEDS: MORPHINE SULFATE 4 MG/ML CPJ (NOT FOR IM USE) IV PRN (15:52)
[2020-08-07 17:57] LABS: PLATELET ESTIMATE NORMAL
[2020-08-07] MEDS: ATORVASTATIN CALCIUM 40MG TABLET PO SCH (21:00)
[2020-08-07] MEDS: INSULIN GLARGINE UD 100 UNITS/ML SYR SUBCUT SCH (22:24)
[2020-08-07] MEDS: NICARDIPINE 100 MG in SODIUM CHLORIDE 0.9% 60 ML IV PRN (22:32)
[2020-08-08] VITALS (97 sets, daily range): BP systolic 82–149; BP diastolic 34–96
[2020-08-08] MEDS: DEXAMETHASONE 4MG/ML 1ML VIAL IV SCH ×3 (00:26→12:43)
[2020-08-08] MEDS: METHYLPREDNISOLONE SOD SUCC 125 MG/2 ML VIAL IV SCH ×4 (00:26→17:41)
[2020-08-08] MEDS: METOCLOPRAMIDE HCL 10MG/2ML VIAL IV SCH (00:27)
[2020-08-08] MEDS: PROPOFOL 10MG/ML 100ML 100 ML IV PRN ×4 (01:13→21:05)
[2020-08-08] MEDS: IPRATROPIUM/ALBUTEROL 0.5-3(2.5)MG/3ML NEB HHN SCH ×4 (03:59→21:33)
[2020-08-08] MEDS: METOPROLOL TARTRATE 5MG/5ML VIAL IV SCH ×6 (04:00→20:54)
[2020-08-08 06:59] LABS: HEMATOCRIT. 27.4 % (42.0-52.0); HEMOGLOBIN. 9.2 g/dL (14.0-18.0); MEAN CORPUSCULAR HEMOGLOBIN 31.3 pg (28.0-32.0); MEAN CORPUSCULAR VOLUME 92.7 fL (80.0-94.0); PLATELET 311 x1000/uL (130-400); RED BLOOD CELL COUNT 2.96 mill/uL (4.7-6.1); RED CELL DISTRIBUTION WIDTH 12.7 % (11.6-14.6)
[2020-08-08 07:10] LABS: CHLORIDE 115 mEq/L (98-107)
[2020-08-08] MEDS: NICARDIPINE 100 MG in SODIUM CHLORIDE 0.9% 60 ML IV PRN ×2 (07:15→10:35)
[2020-08-08] MEDS: AMLODIPINE 10MG TABLET PO SCH (09:00)
[2020-08-08] MEDS: HYDRALAZINE HCL 25MG TABLET PO SCH ×2 (09:00→20:54)
[2020-08-08 09:04] LABS: BG BASE EXCESS 1.1 mmol/L (-2.0-2.0); BG CARBOXYHEMOGLOBIN 0.3 % (0.5-1.5); BG DEOXYHEMOGLOBIN 2.6 % (0.0-5.0); BG FRACTION INSPIRED OXYGEN 40; BG METHEMOGLOBIN 0.2 % (0.0-1.5); BG OXYGEN SATURATION 97.4 % (92.0-98.5); BG OXYHEMOGLOBIN 96.9 % (94.0-97.0); BG PCO2 37.1 mmHg (35.0-45.0); BG PH 7.447 (7.350-7.450); BG SAMPLE SITE ALINE; BG VENT MODE VENT - AC
[2020-08-08] MEDS: INSULIN GLARGINE UD 100 UNITS/ML SYR SUBCUT SCH (10:00)
[2020-08-08] MEDS: LEVETIRACETAM 500MG PREMIX 100 ML IV SCH ×2 (11:30→20:54)
[2020-08-08] MEDS: BLOOD SUGAR DIAGNOSTIC STRIP TEST SCH ×3 (13:04→20:43)
[2020-08-08] MEDS: INSULIN LISPRO 100 UNITS/ML SUBCUT SCH ×3 (13:05→20:55)
[2020-08-08] MEDS: ACETAMINOPHEN 325MG TABLET PO PRN (15:37)
[2020-08-08] MEDS: DEXT 5%/LACTATED RINGERS 1,000 ML IV SCH (16:00)
[2020-08-08 20:01] LABS: PLATELET ESTIMATE NORMAL
[2020-08-08] MEDS: ATORVASTATIN CALCIUM 40MG TABLET PO SCH (20:54)
[2020-08-08] MEDS ORDERED: INSULIN GLARGINE UD 100 UNITS/ML SYR SUBCUT SCH (22:00)
[2020-08-09] VITALS (90 sets, daily range): BP systolic 72–167; BP diastolic 39–114
[2020-08-09] MEDS: METHYLPREDNISOLONE SOD SUCC 125 MG/2 ML VIAL IV SCH ×5 (00:18→23:56)
[2020-08-09] MEDS: METOPROLOL TARTRATE 5MG/5ML VIAL IV SCH ×7 (00:18→23:56)
[2020-08-09] MEDS: IPRATROPIUM/ALBUTEROL 0.5-3(2.5)MG/3ML NEB HHN SCH ×4 (01:31→19:53)
[2020-08-09] MEDS: PROPOFOL 10MG/ML 100ML 100 ML IV PRN ×5 (02:46→20:57)
[2020-08-09 06:44] LABS: HEMATOCRIT. 26.4 % (42.0-52.0); HEMOGLOBIN. 8.7 g/dL (14.0-18.0); MEAN CORPUSCULAR HEMOGLOBIN 30.9 pg (28.0-32.0); MEAN CORPUSCULAR VOLUME 94.1 fL (80.0-94.0); PLATELET 308 x1000/uL (130-400); RED BLOOD CELL COUNT 2.81 mill/uL (4.7-6.1)
[2020-08-09] MEDS: NICARDIPINE 100 MG in SODIUM CHLORIDE 0.9% 60 ML IV PRN ×2 (06:59→08:47)
[2020-08-09] MEDS: BLOOD SUGAR DIAGNOSTIC STRIP TEST SCH ×4 (07:01→20:28)
[2020-08-09] MEDS: INSULIN LISPRO 100 UNITS/ML SUBCUT SCH ×4 (09:10→20:55)
[2020-08-09] MEDS: DEXT 5%/LACTATED RINGERS 1,000 ML IV SCH (09:36)
[2020-08-09] MEDS: LEVETIRACETAM 500MG PREMIX 100 ML IV SCH ×2 (09:45→20:26)
[2020-08-09] MEDS: HYDRALAZINE HCL 25MG TABLET PO SCH ×2 (09:46→20:28)
[2020-08-09] MEDS: AMLODIPINE 10MG TABLET PO SCH (09:46)
[2020-08-09] MEDS: CLONIDINE HCL 0.2MG/24HR PATCH TD SCH (10:10)
[2020-08-09] MEDS: MORPHINE SULFATE 4 MG/ML CPJ (NOT FOR IM USE) IV PRN ×4 (10:37→23:25)
[2020-08-09] MEDS ORDERED: DEXT 5%/0.2% NACL 1,000 ML IV SCH (12:30)
[2020-08-09 16:30] LABS: PLATELET ESTIMATE NORMAL
[2020-08-09] MEDS: DEXTROSE 5% WATER 1,000 ML IV SCH (18:44)
[2020-08-09] MEDS: ATORVASTATIN CALCIUM 40MG TABLET PO SCH (20:27)
[2020-08-10] VITALS (85 sets, daily range): BP systolic 101–168; BP diastolic 49–111
[2020-08-10] MEDS: PROPOFOL 10MG/ML 100ML 100 ML IV PRN ×5 (03:45→23:43)
[2020-08-10] MEDS: IPRATROPIUM/ALBUTEROL 0.5-3(2.5)MG/3ML NEB HHN SCH ×4 (04:10→21:02)
[2020-08-10] MEDS: MORPHINE SULFATE 4 MG/ML CPJ (NOT FOR IM USE) IV PRN ×3 (04:14→08:26)
[2020-08-10] MEDS: DEXTROSE 5% WATER 1,000 ML IV SCH ×3 (05:09→19:18)
[2020-08-10] MEDS: METOPROLOL TARTRATE 5MG/5ML VIAL IV SCH ×6 (05:10→23:27)
[2020-08-10 05:41] LABS: HEMATOCRIT. 25.1 % (42.0-52.0); HEMOGLOBIN. 8.2 g/dL (14.0-18.0); MEAN PLATELET VOLUME 8.1 fl (7.4-10.4); PLATELET 286 x1000/uL (130-400); RED BLOOD CELL COUNT 2.65 mill/uL (4.7-6.1); RED CELL DISTRIBUTION WIDTH 13.1 % (11.6-14.6)
[2020-08-10 05:59] LABS: CHLORIDE 129 mEq/L (98-107)
[2020-08-10] MEDS: METHYLPREDNISOLONE SOD SUCC 125 MG/2 ML VIAL IV SCH ×4 (06:34→23:45)
[2020-08-10] MEDS: BLOOD SUGAR DIAGNOSTIC STRIP TEST SCH ×4 (06:34→20:17)
[2020-08-10] MEDS: INSULIN LISPRO 100 UNITS/ML SUBCUT SCH ×4 (06:35→20:48)
[2020-08-10] MEDS: LEVETIRACETAM 500MG PREMIX 100 ML IV SCH ×2 (08:24→21:38)
[2020-08-10] MEDS: AMLODIPINE 10MG TABLET PO SCH (08:25)
[2020-08-10] MEDS: HYDRALAZINE HCL 25MG TABLET PO SCH ×2 (08:25→20:48)
[2020-08-10 09:30] LABS: BG BASE EXCESS 4.7 mmol/L (-2.0-2.0); BG CARBOXYHEMOGLOBIN 0.2 % (0.5-1.5); BG DEOXYHEMOGLOBIN 1.9 % (0.0-5.0); BG METHEMOGLOBIN 0.3 % (0.0-1.5); BG OXYGEN SATURATION 98.1 % (92.0-98.5); BG OXYHEMOGLOBIN 97.6 % (94.0-97.0); BG PCO2 41.7 mmHg (35.0-45.0); BG PO2 140.9 mmHg (75.0-100.0); BG SAMPLE SITE RIGHT RADIAL; BG TOTAL HEMOGLOBIN 9.7 g/dL (12.0-18.0); BG VENT MODE VENT - AC
[2020-08-10] MEDS: FENTANYL CITRATE/PF 2,500 MCG in SODIUM CHLORIDE 0.9% 200 ML IV PRN (11:30)
[2020-08-10] MEDS: NICARDIPINE 100 MG in SODIUM CHLORIDE 0.9% 60 ML IV PRN (13:23)
[2020-08-10 18:43] LABS: PLATELET ESTIMATE NORMAL
[2020-08-10] MEDS: ATORVASTATIN CALCIUM 40MG TABLET PO SCH (20:47)
[2020-08-10] MEDS: INSULIN GLARGINE UD 100 UNITS/ML SYR SUBCUT SCH (21:40)
[2020-08-11] VITALS (88 sets, daily range): BP systolic -3–176; BP diastolic -3–139
[2020-08-11] MEDS: IPRATROPIUM/ALBUTEROL 0.5-3(2.5)MG/3ML NEB HHN SCH ×4 (02:41→21:21)
[2020-08-11] MEDS: DEXTROSE 5% WATER 1,000 ML IV SCH ×3 (03:20→18:27)
[2020-08-11] MEDS: METOPROLOL TARTRATE 5MG/5ML VIAL IV SCH ×5 (03:20→20:00)
[2020-08-11 06:30] LABS: HEMATOCRIT. 22.2 % (42.0-52.0); HEMOGLOBIN. 7.2 g/dL (14.0-18.0); MEAN CORPUSCULAR HEMOGLOBIN 30.4 pg (28.0-32.0); MEAN PLATELET VOLUME 8.2 fl (7.4-10.4); PLATELET 257 x1000/uL (130-400); RED BLOOD CELL COUNT 2.36 mill/uL (4.7-6.1)
[2020-08-11 06:31] LABS: CHLORIDE 124 mEq/L (98-107)
[2020-08-11] MEDS: BLOOD SUGAR DIAGNOSTIC STRIP TEST SCH ×4 (06:36→20:48)
[2020-08-11] MEDS: PROPOFOL 10MG/ML 100ML 100 ML IV PRN (06:39)
[2020-08-11] MEDS: METHYLPREDNISOLONE SOD SUCC 125 MG/2 ML VIAL IV SCH ×3 (06:40→18:14)
[2020-08-11] MEDS: INSULIN LISPRO 100 UNITS/ML SUBCUT SCH ×4 (06:40→21:33)
[2020-08-11 06:47] LABS: PHOSPHORUS 3.1 mg/dL (2.5-4.9)
[2020-08-11] MEDS: LEVETIRACETAM 500MG PREMIX 100 ML IV SCH ×2 (08:27→21:33)
[2020-08-11] MEDS: AMLODIPINE 10MG TABLET PO SCH (08:36)
[2020-08-11] MEDS: HYDRALAZINE HCL 25MG TABLET PO SCH ×2 (08:36→21:34)
[2020-08-11] MEDS: INSULIN GLARGINE UD 100 UNITS/ML SYR SUBCUT SCH ×2 (09:38→21:33)
[2020-08-11] MEDS: FENTANYL CITRATE/PF 2,500 MCG in SODIUM CHLORIDE 0.9% 200 ML IV PRN ×2 (13:35→22:29)
[2020-08-11] MEDS: MIDAZOLAM HCL 100 MG in SODIUM CHLORIDE 0.9% 80 ML IV PRN (13:47)
[2020-08-11 14:13] LABS: PLATELET ESTIMATE NORMAL
[2020-08-11 15:41] LABS: BG BASE EXCESS 3.5 mmol/L (-2.0-2.0); BG CARBOXYHEMOGLOBIN 0.3 % (0.5-1.5); BG DEOXYHEMOGLOBIN 1.6 % (0.0-5.0); BG HCO3 ACT 26.7 mmol/L (22.0-26.0); BG METHEMOGLOBIN 0.5 % (0.0-1.5); BG OXYGEN SATURATION 98.4 % (92.0-98.5); BG OXYHEMOGLOBIN 97.6 % (94.0-97.0); BG PCO2 34.5 mmHg (35.0-45.0); BG PH 7.507 (7.350-7.450); BG PO2 171.1 mmHg (75.0-100.0); BG SAMPLE SITE RIGHT RADIAL; BG TOTAL HEMOGLOBIN 7.3 g/dL (12.0-18.0); BG VENT MODE VENT - AC
[2020-08-11] MEDS: ATORVASTATIN CALCIUM 40MG TABLET PO SCH (21:34)
[2020-08-11] MEDS: ACETAMINOPHEN 325MG TABLET PO PRN (22:29)
[2020-08-12] VITALS (97 sets, daily range): BP systolic -3–163; BP diastolic -3–89
[2020-08-12] MEDS: METHYLPREDNISOLONE SOD SUCC 125 MG/2 ML VIAL IV SCH ×4 (00:21→17:42)
[2020-08-12] MEDS: NICARDIPINE 100 MG in SODIUM CHLORIDE 0.9% 60 ML IV PRN (00:24)
[2020-08-12] MEDS: IPRATROPIUM/ALBUTEROL 0.5-3(2.5)MG/3ML NEB HHN SCH ×4 (01:26→20:03)
[2020-08-12] MEDS: DEXTROSE 5% WATER 1,000 ML IV SCH ×3 (03:30→22:23)
[2020-08-12] MEDS: METOPROLOL TARTRATE 5MG/5ML VIAL IV SCH ×7 (04:00→23:34)
[2020-08-12] MEDS: FENTANYL CITRATE/PF 2,500 MCG in SODIUM CHLORIDE 0.9% 200 ML IV PRN ×2 (06:40→23:39)
[2020-08-12 07:07] LABS: HEMATOCRIT. 23.3 % (42.0-52.0); HEMOGLOBIN. 7.4 g/dL (14.0-18.0); MEAN CORPUSCULAR HEMOGLOBIN 30.3 pg (28.0-32.0); MEAN CORPUSCULAR VOLUME 95.5 fL (80.0-94.0); MEAN PLATELET VOLUME 8.4 fl (7.4-10.4); PLATELET 273 x1000/uL (130-400); RED BLOOD CELL COUNT 2.44 mill/uL (4.7-6.1); RED CELL DISTRIBUTION WIDTH 13.2 % (11.6-14.6)
[2020-08-12] MEDS: BLOOD SUGAR DIAGNOSTIC STRIP TEST SCH ×4 (07:30→21:00)
[2020-08-12] MEDS: HYDRALAZINE HCL 25MG TABLET PO SCH ×2 (08:37→22:22)
[2020-08-12] MEDS: AMLODIPINE 10MG TABLET PO SCH (08:37)
[2020-08-12] MEDS: LEVETIRACETAM 500MG PREMIX 100 ML IV SCH ×2 (08:38→22:24)
[2020-08-12] MEDS: INSULIN LISPRO 100 UNITS/ML SUBCUT SCH ×4 (08:39→22:25)
[2020-08-12 09:02] LABS: BG BASE EXCESS 3.9 mmol/L (-2.0-2.0); BG CARBOXYHEMOGLOBIN 0.2 % (0.5-1.5); BG DEOXYHEMOGLOBIN 3.7 % (0.0-5.0); BG FRACTION INSPIRED OXYGEN 35; BG HCO3 ACT 29.5 mmol/L (22.0-26.0); BG OXYGEN SATURATION 96.3 % (92.0-98.5); BG OXYHEMOGLOBIN 96.1 % (94.0-97.0); BG PCO2 50.5 mmHg (35.0-45.0); BG PH 7.385 (7.350-7.450); BG PO2 93.8 mmHg (75.0-100.0); BG SAMPLE SITE RIGHT RADIAL; BG TOTAL HEMOGLOBIN 8.4 g/dL (12.0-18.0); BG VENT MODE VENT - AC
[2020-08-12] MEDS: INSULIN GLARGINE UD 100 UNITS/ML SYR SUBCUT SCH ×2 (10:28→22:25)
[2020-08-12 15:45] LABS: HEMATOCRIT 22.7 % (42.0-52.0); HEMOGLOBIN 7.3 g/dL (14.0-18.0); MEAN CORPUSCULAR HEMOGLOBIN 30.8 pg (28.0-32.0); MEAN CORPUSCULAR VOLUME 95.9 fL (80.0-94.0); PLATELET 251 x1000/uL (130-400); RED BLOOD CELL COUNT 2.36 mill/uL (4.7-6.1)
[2020-08-12 15:51] LABS: CHLORIDE 118 mEq/L (98-107)
[2020-08-12 15:56] LABS: PHOSPHORUS 3.8 mg/dL (2.5-4.9)
[2020-08-12 17:17] LABS: PLATELET ESTIMATE NORMAL
[2020-08-12] MEDS: PIPERACILLIN/TAZOBACTAM 3.375 G in DEXT 5% WATER 100 ML IV SCH (19:25)
[2020-08-12] MEDS: QUETIAPINE FUMARATE 25MG TABLET PO SCH (22:22)
[2020-08-12] MEDS: ATORVASTATIN CALCIUM 40MG TABLET PO SCH (22:23)
[2020-08-13] VITALS (99 sets, daily range): BP systolic -2–164; BP diastolic -3–82
[2020-08-13] MEDS: METHYLPREDNISOLONE SOD SUCC 125 MG/2 ML VIAL IV SCH ×4 (00:04→17:19)
[2020-08-13] MEDS: PIPERACILLIN/TAZOBACTAM 3.375 G in DEXT 5% WATER 100 ML IV SCH ×4 (00:04→17:19)
[2020-08-13] MEDS: IPRATROPIUM/ALBUTEROL 0.5-3(2.5)MG/3ML NEB HHN SCH ×4 (02:39→20:43)
[2020-08-13] MEDS: DEXTROSE 5% WATER 1,000 ML IV SCH (02:45)
[2020-08-13] MEDS: METOPROLOL TARTRATE 5MG/5ML VIAL IV SCH ×4 (04:00→16:00)
[2020-08-13 05:17] LABS: CHLORIDE 115 mEq/L (98-107)
[2020-08-13] MEDS: BLOOD SUGAR DIAGNOSTIC STRIP TEST SCH ×4 (06:33→21:07)
[2020-08-13] MEDS: LEVETIRACETAM 500MG PREMIX 100 ML IV SCH ×2 (09:17→21:28)
[2020-08-13] MEDS: QUETIAPINE FUMARATE 25MG TABLET PO SCH ×2 (09:17→21:23)
[2020-08-13] MEDS: HYDRALAZINE HCL 25MG TABLET PO SCH ×2 (09:19→21:22)
[2020-08-13] MEDS: AMLODIPINE 10MG TABLET PO SCH (09:19)
[2020-08-13] MEDS: INSULIN LISPRO 100 UNITS/ML SUBCUT SCH ×4 (09:21→21:26)
[2020-08-13 09:27] LABS: HEMATOCRIT. 23.9 % (42.0-52.0); HEMOGLOBIN. 7.6 g/dL (14.0-18.0); MEAN CORPUSCULAR HEMOGLOBIN 30.5 pg (28.0-32.0); MEAN CORPUSCULAR VOLUME 95.3 fL (80.0-94.0); MEAN PLATELET VOLUME 8.1 fl (7.4-10.4); PLATELET 225 x1000/uL (130-400); RED CELL DISTRIBUTION WIDTH 12.7 % (11.6-14.6)
[2020-08-13] MEDS: FENTANYL CITRATE/PF 2,500 MCG in SODIUM CHLORIDE 0.9% 200 ML IV PRN ×3 (09:30→23:48)
[2020-08-13] MEDS: INSULIN GLARGINE UD 100 UNITS/ML SYR SUBCUT SCH ×2 (11:55→21:29)
[2020-08-13 14:31] LABS: PLATELET ESTIMATE NORMAL
[2020-08-13 16:02] LABS: HEMATOCRIT 22.7 % (42.0-52.0); HEMOGLOBIN 7.2 g/dL (14.0-18.0); MEAN CORPUSCULAR HEMOGLOBIN 29.8 pg (28.0-32.0); MEAN CORPUSCULAR VOLUME 93.9 fL (80.0-94.0); PLATELET 219 x1000/uL (130-400); RED BLOOD CELL COUNT 2.42 mill/uL (4.7-6.1); RED CELL DISTRIBUTION WIDTH 12.5 % (11.6-14.6)
[2020-08-13] MEDS ORDERED: DOPAMINE 400MG/250ML PREMIX 250 ML IV PRN (17:45)
[2020-08-13] MEDS: NICARDIPINE 100 MG in SODIUM CHLORIDE 0.9% 60 ML IV PRN (19:07)
[2020-08-13] MEDS: ATORVASTATIN CALCIUM 40MG TABLET PO SCH (21:22)
[2020-08-14] VITALS (51 sets, daily range): BP systolic 8–145; BP diastolic 2–78
[2020-08-14] MEDS: METHYLPREDNISOLONE SOD SUCC 125 MG/2 ML VIAL IV SCH ×5 (00:11→23:31)
[2020-08-14] MEDS: PIPERACILLIN/TAZOBACTAM 3.375 G in DEXT 5% WATER 100 ML IV SCH ×5 (00:11→23:31)
[2020-08-14] MEDS: IPRATROPIUM/ALBUTEROL 0.5-3(2.5)MG/3ML NEB HHN SCH ×4 (02:32→19:53)
[2020-08-14 06:27] LABS: HEMOGLOBIN. 7.3 g/dL (14.0-18.0); MEAN CORPUSCULAR HEMOGLOBIN 29.9 pg (28.0-32.0); MEAN CORPUSCULAR VOLUME 94.6 fL (80.0-94.0); MEAN PLATELET VOLUME 8.6 fl (7.4-10.4); PLATELET 221 x1000/uL (130-400); RED BLOOD CELL COUNT 2.43 mill/uL (4.7-6.1); RED CELL DISTRIBUTION WIDTH 12.4 % (11.6-14.6)
[2020-08-14] MEDS: MIDAZOLAM HCL 100 MG in SODIUM CHLORIDE 0.9% 80 ML IV PRN (06:29)
[2020-08-14] MEDS: BLOOD SUGAR DIAGNOSTIC STRIP TEST SCH ×4 (06:43→23:11)
[2020-08-14] MEDS: AMLODIPINE 10MG TABLET PO SCH (08:39)
[2020-08-14] MEDS: LEVETIRACETAM 500MG PREMIX 100 ML IV SCH ×2 (08:39→21:31)
[2020-08-14] MEDS: INSULIN LISPRO 100 UNITS/ML SUBCUT SCH ×4 (08:39→23:18)
[2020-08-14] MEDS: QUETIAPINE FUMARATE 25MG TABLET PO SCH ×2 (08:40→21:31)
[2020-08-14] MEDS: HYDRALAZINE HCL 25MG TABLET PO SCH ×2 (08:40→21:31)
[2020-08-14] MEDS: FENTANYL CITRATE/PF 2,500 MCG in SODIUM CHLORIDE 0.9% 200 ML IV PRN ×2 (08:44→17:26)
[2020-08-14] MEDS: DEXTROSE 5% WATER 1,000 ML IV SCH ×3 (09:30→21:41)
[2020-08-14 10:00] LABS: BG BASE EXCESS 3.1 mmol/L (-2.0-2.0); BG CARBOXYHEMOGLOBIN 0.3 % (0.5-1.5); BG DEOXYHEMOGLOBIN 2.7 % (0.0-5.0); BG FRACTION INSPIRED OXYGEN 35; BG HCO3 ACT 28.4 mmol/L (22.0-26.0); BG METHEMOGLOBIN 0.4 % (0.0-1.5); BG OXYGEN SATURATION 97.3 % (92.0-98.5); BG OXYHEMOGLOBIN 96.6 % (94.0-97.0); BG PCO2 47.5 mmHg (35.0-45.0); BG PH 7.395 (7.350-7.450); BG SAMPLE SITE LEFT RADIAL; BG TOTAL HEMOGLOBIN 8.7 g/dL (12.0-18.0); BG TOTAL RESPIRATORY RATE 19 b/min; BG VENT MODE VENT - AC
[2020-08-14] MEDS: INSULIN GLARGINE UD 100 UNITS/ML SYR SUBCUT SCH ×2 (10:48→23:20)
[2020-08-14 15:05] LABS: PLATELET ESTIMATE NORMAL
[2020-08-14] MEDS: ATORVASTATIN CALCIUM 40MG TABLET PO SCH (21:30)
[2020-08-15] VITALS (62 sets, daily range): BP systolic 98–143; BP diastolic 56–83
[2020-08-15] MEDS: FENTANYL CITRATE/PF 2,500 MCG in SODIUM CHLORIDE 0.9% 200 ML IV PRN ×3 (01:25→23:38)
[2020-08-15] MEDS: IPRATROPIUM/ALBUTEROL 0.5-3(2.5)MG/3ML NEB HHN SCH ×4 (02:08→20:50)
[2020-08-15] MEDS: BLOOD SUGAR DIAGNOSTIC STRIP TEST SCH ×4 (05:07→23:49)
[2020-08-15 05:26] LABS: CHLORIDE 109 mEq/L (98-107)
[2020-08-15] MEDS: PIPERACILLIN/TAZOBACTAM 3.375 G in DEXT 5% WATER 100 ML IV SCH ×4 (05:45→23:41)
[2020-08-15] MEDS: METHYLPREDNISOLONE SOD SUCC 125 MG/2 ML VIAL IV SCH ×4 (05:45→23:49)
[2020-08-15] MEDS: INSULIN LISPRO 100 UNITS/ML SUBCUT SCH ×4 (05:50→23:49)
[2020-08-15 06:20] LABS: HEMATOCRIT. 25.5 % (42.0-52.0); HEMOGLOBIN. 8.2 g/dL (14.0-18.0); MEAN CORPUSCULAR HEMOGLOBIN 30.4 pg (28.0-32.0); MEAN CORPUSCULAR VOLUME 94.1 fL (80.0-94.0); MEAN PLATELET VOLUME 8.8 fl (7.4-10.4); PLATELET 235 x1000/uL (130-400); RED BLOOD CELL COUNT 2.71 mill/uL (4.7-6.1); RED CELL DISTRIBUTION WIDTH 12.3 % (11.6-14.6)
[2020-08-15] MEDS: LEVETIRACETAM 500MG PREMIX 100 ML IV SCH ×2 (08:00→20:17)
[2020-08-15] MEDS: AMLODIPINE 10MG TABLET PO SCH (08:00)
[2020-08-15] MEDS: QUETIAPINE FUMARATE 25MG TABLET PO SCH ×2 (08:01→20:17)
[2020-08-15] MEDS: HYDRALAZINE HCL 25MG TABLET PO SCH ×2 (08:01→20:28)
[2020-08-15] MEDS: DEXTROSE 5% WATER 1,000 ML IV SCH (08:11)
[2020-08-15] MEDS: INSULIN GLARGINE UD 100 UNITS/ML SYR SUBCUT SCH ×2 (09:38→21:12)
[2020-08-15 09:46] LABS: BG BASE EXCESS 3.3 mmol/L (-2.0-2.0); BG DEOXYHEMOGLOBIN 3.7 % (0.0-5.0); BG FRACTION INSPIRED OXYGEN 35; BG HCO3 ACT 28.8 mmol/L (22.0-26.0); BG METHEMOGLOBIN 0.3 % (0.0-1.5); BG OXYGEN SATURATION 96.3 % (92.0-98.5); BG PCO2 48.6 mmHg (35.0-45.0); BG PO2 89.5 mmHg (75.0-100.0); BG SAMPLE SITE RIGHT RADIAL; BG TOTAL HEMOGLOBIN 8.7 g/dL (12.0-18.0); BG TOTAL RESPIRATORY RATE 18 b/min; BG VENT MODE VENT - AC
[2020-08-15 13:31] LABS: PLATELET ESTIMATE NORMAL
[2020-08-15] MEDS ORDERED: MIDAZOLAM 100MG/100ML PMX 100 ML IV PRN (15:45)
[2020-08-15] MEDS: MIDAZOLAM HCL 100 MG in SODIUM CHLORIDE 0.9% 80 ML IV PRN (18:33)
[2020-08-15] MEDS: ATORVASTATIN CALCIUM 40MG TABLET PO SCH (20:17)
[2020-08-16] VITALS (102 sets, daily range): BP systolic 106–186; BP diastolic 37–127
[2020-08-16] MEDS: IPRATROPIUM/ALBUTEROL 0.5-3(2.5)MG/3ML NEB HHN SCH ×4 (02:35→20:04)
[2020-08-16] MEDS: BLOOD SUGAR DIAGNOSTIC STRIP TEST SCH ×4 (05:29→22:07)
[2020-08-16] MEDS: INSULIN LISPRO 100 UNITS/ML SUBCUT SCH ×4 (05:29→22:07)
[2020-08-16] MEDS: METHYLPREDNISOLONE SOD SUCC 125 MG/2 ML VIAL IV SCH ×4 (05:30→23:53)
[2020-08-16] MEDS: PIPERACILLIN/TAZOBACTAM 3.375 G in DEXT 5% WATER 100 ML IV SCH ×4 (05:30→23:53)
[2020-08-16 06:08] LABS: HEMATOCRIT. 23.6 % (42.0-52.0); HEMOGLOBIN. 7.6 g/dL (14.0-18.0); MEAN CORPUSCULAR HEMOGLOBIN 30.1 pg (28.0-32.0); MEAN CORPUSCULAR VOLUME 93.2 fL (80.0-94.0); PLATELET 224 x1000/uL (130-400); RED BLOOD CELL COUNT 2.53 mill/uL (4.7-6.1); RED CELL DISTRIBUTION WIDTH 12.3 % (11.6-14.6)
[2020-08-16] MEDS: DEXTROSE 5% WATER 1,000 ML IV SCH ×2 (08:14→22:07)
[2020-08-16] MEDS: CLONIDINE HCL 0.2MG/24HR PATCH TD SCH (08:14)
[2020-08-16] MEDS: LEVETIRACETAM 500MG PREMIX 100 ML IV SCH ×2 (08:14→20:13)
[2020-08-16] MEDS: QUETIAPINE FUMARATE 25MG TABLET PO SCH ×2 (08:15→20:16)
[2020-08-16] MEDS: AMLODIPINE 10MG TABLET PO SCH (08:15)
[2020-08-16] MEDS: HYDRALAZINE HCL 25MG TABLET PO SCH ×2 (08:15→20:16)
[2020-08-16] MEDS: INSULIN GLARGINE UD 100 UNITS/ML SYR SUBCUT SCH ×2 (10:00→21:21)
[2020-08-16] MEDS: PANTOPRAZOLE SODIUM 40 MG/VIAL IV SCH (11:11)
[2020-08-16] MEDS: FENTANYL CITRATE/PF 2,500 MCG in SODIUM CHLORIDE 0.9% 200 ML IV PRN ×2 (12:37→23:13)
[2020-08-16 12:47] LABS: PLATELET ESTIMATE NORMAL
[2020-08-16] MEDS: NICARDIPINE 100 MG in SODIUM CHLORIDE 0.9% 60 ML IV PRN (16:29)
[2020-08-16] MEDS ORDERED: ROCURONIUM BROMIDE 10MG/ML VIAL 5ML IV ONE (17:58)
[2020-08-16] MEDS ORDERED: EPHEDRINE SULFATE 50MG/ML VIAL ONE (18:09)
[2020-08-16] MEDS: ATORVASTATIN CALCIUM 40MG TABLET PO SCH (20:16)
[2020-08-16] MEDS: HALOPERIDOL LACTATE 5MG/ML VIAL IM PRN (23:53)
[2020-08-17] VITALS (102 sets, daily range): BP systolic 82–134; BP diastolic 34–72
[2020-08-17] MEDS: MIDAZOLAM HCL 100 MG in SODIUM CHLORIDE 0.9% 100 ML IV PRN (00:09)
[2020-08-17] MEDS: IPRATROPIUM/ALBUTEROL 0.5-3(2.5)MG/3ML NEB HHN SCH ×3 (02:10→19:43)
[2020-08-17] MEDS: NICARDIPINE 100 MG in SODIUM CHLORIDE 0.9% 60 ML IV PRN (04:43)
[2020-08-17] MEDS: BLOOD SUGAR DIAGNOSTIC STRIP TEST SCH ×4 (05:30→21:43)
[2020-08-17] MEDS: INSULIN LISPRO 100 UNITS/ML SUBCUT SCH ×4 (05:30→21:55)
[2020-08-17] MEDS: METHYLPREDNISOLONE SOD SUCC 125 MG/2 ML VIAL IV SCH ×3 (05:44→17:36)
[2020-08-17] MEDS: PIPERACILLIN/TAZOBACTAM 3.375 G in DEXT 5% WATER 100 ML IV SCH ×2 (05:44→11:57)
[2020-08-17 06:41] LABS: MEAN CORPUSCULAR HEMOGLOBIN 30.9 pg (28.0-32.0); MEAN CORPUSCULAR VOLUME 92.8 fL (80.0-94.0); MEAN PLATELET VOLUME 8.8 fl (7.4-10.4); PLATELET 198 x1000/uL (130-400); RED BLOOD CELL COUNT 2.25 mill/uL (4.7-6.1); RED CELL DISTRIBUTION WIDTH 12.5 % (11.6-14.6)
[2020-08-17 06:54] LABS: CHLORIDE 109 mEq/L (98-107)
[2020-08-17 08:02] LABS: HEMATOCRIT. 20.9 % (42.0-52.0)
[2020-08-17] MEDS: FENTANYL CITRATE/PF 2,500 MCG in SODIUM CHLORIDE 0.9% 200 ML IV PRN ×2 (08:21→17:05)
[2020-08-17] MEDS: LEVETIRACETAM 500MG PREMIX 100 ML IV SCH ×2 (08:35→21:53)
[2020-08-17] MEDS: PANTOPRAZOLE SODIUM 40 MG/VIAL IV SCH (08:36)
[2020-08-17] MEDS: HYDRALAZINE HCL 25MG TABLET PO SCH (08:36)
[2020-08-17] MEDS: QUETIAPINE FUMARATE 25MG TABLET PO SCH ×2 (08:36→21:53)
[2020-08-17] MEDS: AMLODIPINE 10MG TABLET PO SCH (08:36)
[2020-08-17] MEDS: INSULIN GLARGINE UD 100 UNITS/ML SYR SUBCUT SCH ×2 (09:42→21:55)
[2020-08-17] MEDS ORDERED: MIDODRINE HCL 5MG TABLET PO NR (10:45)
[2020-08-17] MEDS: DEXTROSE 5% WATER 1,000 ML IV SCH (10:53)
[2020-08-17 21:47] LABS: PLATELET ESTIMATE NORMAL
[2020-08-17] MEDS: ATORVASTATIN CALCIUM 40MG TABLET PO SCH (21:53)
[2020-08-18] VITALS (96 sets, daily range): BP systolic 106–159; BP diastolic 57–82
[2020-08-18] MEDS: FENTANYL CITRATE/PF 2,500 MCG in SODIUM CHLORIDE 0.9% 200 ML IV PRN ×3 (01:57→19:54)
[2020-08-18] MEDS: DEXTROSE 5% WATER 1,000 ML IV SCH ×2 (02:12→19:54)
[2020-08-18] MEDS: IPRATROPIUM/ALBUTEROL 0.5-3(2.5)MG/3ML NEB HHN SCH ×4 (04:50→20:54)
[2020-08-18] MEDS: BLOOD SUGAR DIAGNOSTIC STRIP TEST SCH ×4 (05:11→23:03)
[2020-08-18] MEDS: METHYLPREDNISOLONE SOD SUCC 125 MG/2 ML VIAL IV SCH ×5 (05:11→23:55)
[2020-08-18] MEDS: INSULIN LISPRO 100 UNITS/ML SUBCUT SCH ×4 (05:13→23:03)
[2020-08-18 07:20] LABS: CHLORIDE 109 mEq/L (98-107)
[2020-08-18 07:29] LABS: HEMATOCRIT. 28.2 % (42.0-52.0); HEMOGLOBIN. 9.6 g/dL (14.0-18.0); MEAN CORPUSCULAR VOLUME 91.5 fL (80.0-94.0); MEAN PLATELET VOLUME 8.8 fl (7.4-10.4); PLATELET 182 x1000/uL (130-400); RED BLOOD CELL COUNT 3.08 mill/uL (4.7-6.1); RED CELL DISTRIBUTION WIDTH 13.1 % (11.6-14.6)
[2020-08-18] MEDS: QUETIAPINE FUMARATE 25MG TABLET PO SCH ×2 (08:49→20:39)
[2020-08-18] MEDS: PANTOPRAZOLE SODIUM 40 MG/VIAL IV SCH (08:49)
[2020-08-18] MEDS: LEVETIRACETAM 500MG PREMIX 100 ML IV SCH ×2 (08:49→20:39)
[2020-08-18] MEDS: INSULIN GLARGINE UD 100 UNITS/ML SYR SUBCUT SCH ×2 (10:24→22:00)
[2020-08-18 13:16] LABS: BG BASE EXCESS 3.5 mmol/L (-2.0-2.0); BG CARBOXYHEMOGLOBIN 0.2 % (0.5-1.5); BG DEOXYHEMOGLOBIN 5.2 % (0.0-5.0); BG FRACTION INSPIRED OXYGEN 50; BG HCO3 ACT 29.2 mmol/L (22.0-26.0); BG METHEMOGLOBIN 0.3 % (0.0-1.5); BG OXYGEN SATURATION 94.8 % (92.0-98.5); BG OXYHEMOGLOBIN 94.3 % (94.0-97.0); BG PCO2 49.5 mmHg (35.0-45.0); BG PH 7.388 (7.350-7.450); BG PO2 76.6 mmHg (75.0-100.0); BG SAMPLE SITE RIGHT RADIAL; BG TOTAL HEMOGLOBIN 9.7 g/dL (12.0-18.0); BG VENT MODE VENT - AC
[2020-08-18] MEDS: ATORVASTATIN CALCIUM 40MG TABLET PO SCH (20:39)
[2020-08-18] MEDS: HYDRALAZINE 20MG/ML VIAL IV PRN (22:37)
[2020-08-18 23:10] LABS: PLATELET ESTIMATE NORMAL
[2020-08-19] VITALS (95 sets, daily range): BP systolic 104–165; BP diastolic 57–98
[2020-08-19] MEDS: MIDAZOLAM HCL 100 MG in SODIUM CHLORIDE 0.9% 100 ML IV PRN (02:52)
[2020-08-19] MEDS: IPRATROPIUM/ALBUTEROL 0.5-3(2.5)MG/3ML NEB HHN SCH ×4 (03:02→21:19)
[2020-08-19] MEDS: FENTANYL CITRATE/PF 2,500 MCG in SODIUM CHLORIDE 0.9% 200 ML IV PRN ×3 (05:04→23:32)
[2020-08-19] MEDS: BLOOD SUGAR DIAGNOSTIC STRIP TEST SCH ×4 (05:20→23:04)
[2020-08-19] MEDS: INSULIN LISPRO 100 UNITS/ML SUBCUT SCH ×4 (05:26→23:04)
[2020-08-19] MEDS: METHYLPREDNISOLONE SOD SUCC 125 MG/2 ML VIAL IV SCH ×4 (05:31→23:32)
[2020-08-19 06:59] LABS: HEMATOCRIT. 30.3 % (42.0-52.0); HEMOGLOBIN. 10.1 g/dL (14.0-18.0); MEAN CORPUSCULAR HEMOGLOBIN 30.9 pg (28.0-32.0); MEAN CORPUSCULAR VOLUME 92.5 fL (80.0-94.0); PLATELET 177 x1000/uL (130-400); RED BLOOD CELL COUNT 3.27 mill/uL (4.7-6.1); RED CELL DISTRIBUTION WIDTH 13.1 % (11.6-14.6)
[2020-08-19 07:05] LABS: CHLORIDE 108 mEq/L (98-107)
[2020-08-19] MEDS: QUETIAPINE FUMARATE 25MG TABLET PO SCH ×2 (08:46→21:04)
[2020-08-19] MEDS: LEVETIRACETAM 500MG PREMIX 100 ML IV SCH ×2 (08:46→21:04)
[2020-08-19] MEDS: PANTOPRAZOLE SODIUM 40 MG/VIAL IV SCH (08:47)
[2020-08-19] MEDS: INSULIN GLARGINE UD 100 UNITS/ML SYR SUBCUT SCH ×2 (10:11→22:00)
[2020-08-19 13:48] LABS: PLATELET ESTIMATE NORMAL
[2020-08-19] MEDS ORDERED: MIDAZOLAM 100MG/100ML PMX 100 ML IV PRN (20:00)
[2020-08-19] MEDS ORDERED: FENTANYL CITRATE/PF 2,500 MCG in SODIUM CHLORIDE 0.9% 200 ML IV PRN (20:00)
[2020-08-19] MEDS: ATORVASTATIN CALCIUM 40MG TABLET PO SCH (21:04)
[2020-08-20] VITALS (94 sets, daily range): BP systolic 107–183; BP diastolic 56–126
[2020-08-20] MEDS: HYDRALAZINE 20MG/ML VIAL IV PRN ×3 (01:03→20:05)
[2020-08-20] MEDS: IPRATROPIUM/ALBUTEROL 0.5-3(2.5)MG/3ML NEB HHN SCH ×4 (02:38→20:14)
[2020-08-20] MEDS: BLOOD SUGAR DIAGNOSTIC STRIP TEST SCH ×3 (05:34→17:51)
[2020-08-20] MEDS: METHYLPREDNISOLONE SOD SUCC 125 MG/2 ML VIAL IV SCH ×2 (05:34→11:32)
[2020-08-20] MEDS: INSULIN LISPRO 100 UNITS/ML SUBCUT SCH ×3 (05:34→18:00)
[2020-08-20 05:48] LABS: HEMATOCRIT. 28.9 % (42.0-52.0); HEMOGLOBIN. 9.5 g/dL (14.0-18.0); MEAN CORPUSCULAR HEMOGLOBIN 30.7 pg (28.0-32.0); MEAN CORPUSCULAR VOLUME 93.5 fL (80.0-94.0); MEAN PLATELET VOLUME 8.7 fl (7.4-10.4); PLATELET 165 x1000/uL (130-400); RED BLOOD CELL COUNT 3.09 mill/uL (4.7-6.1); RED CELL DISTRIBUTION WIDTH 13.1 % (11.6-14.6)
[2020-08-20 05:52] LABS: CHLORIDE 109 mEq/L (98-107)
[2020-08-20 06:00] LABS: PHOSPHORUS 2.5 mg/dL (2.5-4.9)
[2020-08-20 09:13] LABS: BG CARBOXYHEMOGLOBIN 0.2 % (0.5-1.5); BG DEOXYHEMOGLOBIN 2.8 % (0.0-5.0); BG FRACTION INSPIRED OXYGEN 50; BG HCO3 ACT 26.6 mmol/L (22.0-26.0); BG METHEMOGLOBIN 0.3 % (0.0-1.5); BG OXYGEN SATURATION 97.2 % (92.0-98.5); BG OXYHEMOGLOBIN 96.7 % (94.0-97.0); BG PCO2 41.9 mmHg (35.0-45.0); BG PH 7.421 (7.350-7.450); BG PO2 97.8 mmHg (75.0-100.0); BG SAMPLE SITE RIGHT RADIAL; BG TOTAL HEMOGLOBIN 9.5 g/dL (12.0-18.0); BG TOTAL RESPIRATORY RATE 14 b/min; BG VENT MODE VENT - AC
[2020-08-20 09:23] LABS: PLATELET ESTIMATE NORMAL
[2020-08-20] MEDS: PANTOPRAZOLE SODIUM 40 MG/VIAL IV SCH (09:37)
[2020-08-20] MEDS: QUETIAPINE FUMARATE 25MG TABLET PO SCH (09:37)
[2020-08-20] MEDS: LEVETIRACETAM 500MG PREMIX 100 ML IV SCH ×2 (09:37→20:24)
[2020-08-20] MEDS: INSULIN GLARGINE UD 100 UNITS/ML SYR SUBCUT SCH ×2 (09:38→22:31)
[2020-08-20] MEDS: MIDAZOLAM HCL 100 MG in SODIUM CHLORIDE 0.9% 100 ML IV PRN (09:39)
[2020-08-20] MEDS: FENTANYL CITRATE/PF 2,500 MCG in SODIUM CHLORIDE 0.9% 200 ML IV PRN ×2 (10:32→20:08)
[2020-08-20] MEDS: MORPHINE SULFATE 4 MG/ML CPJ (NOT FOR IM USE) IV PRN (15:28)
[2020-08-20] MEDS: LORAZEPAM 2MG/ML CPJ IV PRN ×2 (16:00→20:06)
[2020-08-20] MEDS: ATORVASTATIN CALCIUM 40MG TABLET PO SCH (20:06)
[2020-08-20] MEDS: METHYLPREDNISOLONE SOD SUCC 40 MG/ML VIAL IV SCH (20:06)
[2020-08-20] MEDS: QUETIAPINE FUMARATE 50MG TABLET PO SCH (20:06)
[2020-08-21] VITALS (51 sets, daily range): BP systolic 119–216; BP diastolic 56–115
[2020-08-21] MEDS: LORAZEPAM 2MG/ML CPJ IV PRN ×2 (00:04→04:59)
[2020-08-21] MEDS: BLOOD SUGAR DIAGNOSTIC STRIP TEST SCH ×5 (00:04→23:40)
[2020-08-21] MEDS: IPRATROPIUM/ALBUTEROL 0.5-3(2.5)MG/3ML NEB HHN SCH ×4 (02:10→21:35)
[2020-08-21] MEDS: HYDRALAZINE 20MG/ML VIAL IV PRN ×2 (04:58→14:03)
[2020-08-21] MEDS: INSULIN LISPRO 100 UNITS/ML SUBCUT SCH ×5 (05:40→23:40)
[2020-08-21 05:44] LABS: HEMATOCRIT. 29.1 % (42.0-52.0); HEMOGLOBIN. 9.6 g/dL (14.0-18.0); MEAN CORPUSCULAR HEMOGLOBIN 30.7 pg (28.0-32.0); MEAN CORPUSCULAR VOLUME 93.2 fL (80.0-94.0); MEAN PLATELET VOLUME 8.9 fl (7.4-10.4); PLATELET 168 x1000/uL (130-400); RED BLOOD CELL COUNT 3.12 mill/uL (4.7-6.1); RED CELL DISTRIBUTION WIDTH 13.2 % (11.6-14.6)
[2020-08-21] MEDS: MORPHINE SULFATE 4 MG/ML CPJ (NOT FOR IM USE) IV PRN ×3 (05:44→20:51)
[2020-08-21 05:47] LABS: CHLORIDE 110 mEq/L (98-107)
[2020-08-21 05:56] LABS: PHOSPHORUS 2.4 mg/dL (2.5-4.9)
[2020-08-21] MEDS: PANTOPRAZOLE SODIUM 40 MG/VIAL IV SCH (09:00)
[2020-08-21] MEDS: LEVETIRACETAM 500MG PREMIX 100 ML IV SCH ×2 (09:15→20:08)
[2020-08-21] MEDS: QUETIAPINE FUMARATE 50MG TABLET PO SCH ×2 (09:15→20:09)
[2020-08-21] MEDS: METHYLPREDNISOLONE SOD SUCC 40 MG/ML VIAL IV SCH ×2 (09:15→20:08)
[2020-08-21] MEDS: INSULIN GLARGINE UD 100 UNITS/ML SYR SUBCUT SCH (09:18)
[2020-08-21] MEDS: AMLODIPINE 5MG TABLET PO SCH ×2 (14:02→20:09)
[2020-08-21 14:27] LABS: PLATELET ESTIMATE NORMAL
[2020-08-21 17:31] LABS: CHLORIDE 110 mEq/L (98-107)
[2020-08-21] MEDS: ATORVASTATIN CALCIUM 40MG TABLET PO SCH (20:09)
[2020-08-22] VITALS (34 sets, daily range): BP systolic 122–167; BP diastolic 65–134
[2020-08-22] MEDS: IPRATROPIUM/ALBUTEROL 0.5-3(2.5)MG/3ML NEB HHN SCH ×4 (00:29→21:12)
[2020-08-22] MEDS: LORAZEPAM 2MG/ML CPJ IV PRN ×3 (00:53→21:39)
[2020-08-22] MEDS: HYDRALAZINE 20MG/ML VIAL IV PRN (02:51)
[2020-08-22] MEDS: ACETAMINOPHEN 325MG TABLET PO PRN ×2 (02:52→20:02)
[2020-08-22] MEDS: MORPHINE SULFATE 4 MG/ML CPJ (NOT FOR IM USE) IV PRN (04:50)
[2020-08-22 05:14] LABS: HEMATOCRIT. 27.3 % (42.0-52.0); HEMOGLOBIN. 8.9 g/dL (14.0-18.0); MEAN CORPUSCULAR HEMOGLOBIN 30.4 pg (28.0-32.0); MEAN CORPUSCULAR VOLUME 93.5 fL (80.0-94.0); MEAN PLATELET VOLUME 8.3 fl (7.4-10.4); PLATELET 140 x1000/uL (130-400); RED BLOOD CELL COUNT 2.92 mill/uL (4.7-6.1); RED CELL DISTRIBUTION WIDTH 12.9 % (11.6-14.6)
[2020-08-22] MEDS: INSULIN LISPRO 100 UNITS/ML SUBCUT SCH ×4 (05:14→23:56)
[2020-08-22] MEDS: BLOOD SUGAR DIAGNOSTIC STRIP TEST SCH ×4 (05:14→23:57)
[2020-08-22 05:22] LABS: CHLORIDE 109 mEq/L (98-107)
[2020-08-22 05:30] LABS: PHOSPHORUS 2.8 mg/dL (2.5-4.9)
[2020-08-22] MEDS: ONDANSETRON HCL 4MG/2ML INJ IV PRN (05:43)
[2020-08-22 08:48] LABS: BG BASE EXCESS 5.4 mmol/L (-2.0-2.0); BG CARBOXYHEMOGLOBIN 0.3 % (0.5-1.5); BG DEOXYHEMOGLOBIN 3.1 % (0.0-5.0); BG FRACTION INSPIRED OXYGEN 30; BG HCO3 ACT 29.3 mmol/L (22.0-26.0); BG METHEMOGLOBIN 0.1 % (0.0-1.5); BG OXYGEN SATURATION 96.9 % (92.0-98.5); BG OXYHEMOGLOBIN 96.5 % (94.0-97.0); BG PCO2 40.2 mmHg (35.0-45.0); BG PH 7.481 (7.350-7.450); BG PO2 94.2 mmHg (75.0-100.0); BG SAMPLE SITE RIGHT RADIAL; BG TOTAL HEMOGLOBIN 9.4 g/dL (12.0-18.0); BG TOTAL RESPIRATORY RATE 27 b/min; BG VENT MODE VENT - AC
[2020-08-22] MEDS: AMLODIPINE 5MG TABLET PO SCH ×2 (08:57→20:30)
[2020-08-22] MEDS: METHYLPREDNISOLONE SOD SUCC 40 MG/ML VIAL IV SCH (08:58)
[2020-08-22] MEDS: LEVETIRACETAM 500MG PREMIX 100 ML IV SCH ×2 (08:58→20:48)
[2020-08-22] MEDS: QUETIAPINE FUMARATE 50MG TABLET PO SCH ×2 (08:58→20:29)
[2020-08-22] MEDS: PANTOPRAZOLE SODIUM 40 MG/VIAL IV SCH (08:58)
[2020-08-22] MEDS: DOCUSATE SODIUM 250MG CAPSULE PO SCH (08:59)
[2020-08-22 09:01] LABS: PLATELET ESTIMATE NORMAL
[2020-08-22] MEDS: CLONIDINE 0.1MG TABLET PO PRN (09:55)
[2020-08-22] MEDS ORDERED: HYDRALAZINE HCL 100MG TABLET PO NR (10:45)
[2020-08-22] MEDS: HYDRALAZINE HCL 100MG TABLET PO SCH (20:29)
[2020-08-22] MEDS: ATORVASTATIN CALCIUM 40MG TABLET PO SCH (20:29)
[2020-08-23] VITALS (12 sets, daily range): BP systolic 113–161; BP diastolic 54–86
[2020-08-23] MEDS: IPRATROPIUM/ALBUTEROL 0.5-3(2.5)MG/3ML NEB HHN SCH ×4 (01:40→21:07)
[2020-08-23] MEDS: LORAZEPAM 2MG/ML CPJ IV PRN ×4 (04:46→22:50)
[2020-08-23 07:08] LABS: HEMATOCRIT. 24.1 % (42.0-52.0); HEMOGLOBIN. 8.1 g/dL (14.0-18.0); MEAN CORPUSCULAR HEMOGLOBIN 31.5 pg (28.0-32.0); MEAN CORPUSCULAR VOLUME 94.2 fL (80.0-94.0); MEAN PLATELET VOLUME 8.6 fl (7.4-10.4); PLATELET 116 x1000/uL (130-400); RED BLOOD CELL COUNT 2.56 mill/uL (4.7-6.1); RED CELL DISTRIBUTION WIDTH 13.3 % (11.6-14.6)
[2020-08-23 08:01] LABS: CHLORIDE 110 mEq/L (98-107)
[2020-08-23 08:08] LABS: PHOSPHORUS 1.8 mg/dL (2.5-4.9)
[2020-08-23] MEDS: LEVETIRACETAM 500MG PREMIX 100 ML IV SCH ×2 (08:53→20:30)
[2020-08-23] MEDS: QUETIAPINE FUMARATE 50MG TABLET PO SCH ×2 (08:54→20:30)
[2020-08-23] MEDS: PANTOPRAZOLE SODIUM 40 MG/VIAL IV SCH (08:54)
[2020-08-23] MEDS: HYDRALAZINE HCL 100MG TABLET PO SCH ×2 (08:54→20:30)
[2020-08-23] MEDS: DOCUSATE SODIUM 250MG CAPSULE PO SCH (08:55)
[2020-08-23] MEDS: PREDNISONE 20MG TABLET PO SCH (08:55)
[2020-08-23] MEDS: AMLODIPINE 5MG TABLET PO SCH ×2 (08:55→20:29)
[2020-08-23] MEDS: ONDANSETRON HCL 4MG/2ML INJ IV PRN ×2 (11:52→22:12)
[2020-08-23] MEDS: INSULIN LISPRO 100 UNITS/ML SUBCUT SCH ×2 (11:53→17:08)
[2020-08-23] MEDS: BLOOD SUGAR DIAGNOSTIC STRIP TEST SCH ×3 (11:54→23:01)
[2020-08-23 13:15] LABS: PLATELET ESTIMATE SLIGHTLY DECREASED
[2020-08-23 13:40] LABS: HEMATOCRIT. 23.4 % (42.0-52.0); HEMOGLOBIN. 7.8 g/dL (14.0-18.0); MEAN CORPUSCULAR HEMOGLOBIN 31.6 pg (28.0-32.0); MEAN CORPUSCULAR VOLUME 94.7 fL (80.0-94.0); MEAN PLATELET VOLUME 8.1 fl (7.4-10.4); PLATELET 105 x1000/uL (130-400); RED BLOOD CELL COUNT 2.47 mill/uL (4.7-6.1); RED CELL DISTRIBUTION WIDTH 12.9 % (11.6-14.6)
[2020-08-23 14:50] LABS: PLATELET ESTIMATE DECREASED
[2020-08-23] MEDS ORDERED: POTASSIUM PHOS,M-BASIC-D-BASIC 10 MMOL in DEXT 5% WATER 246.6667 ML IV NR (20:30)
[2020-08-23] MEDS: ATORVASTATIN CALCIUM 40MG TABLET PO SCH (20:30)
[2020-08-24] VITALS (12 sets, daily range): BP systolic 104–157; BP diastolic 65–95
[2020-08-24] MEDS: IPRATROPIUM/ALBUTEROL 0.5-3(2.5)MG/3ML NEB HHN SCH ×3 (02:55→21:01)
[2020-08-24] MEDS: ONDANSETRON HCL 4MG/2ML INJ IV PRN (04:30)
[2020-08-24] MEDS: BLOOD SUGAR DIAGNOSTIC STRIP TEST SCH ×3 (05:42→17:17)
[2020-08-24] MEDS: INSULIN LISPRO 100 UNITS/ML SUBCUT SCH ×4 (05:43→17:23)
[2020-08-24] MEDS: LORAZEPAM 2MG/ML CPJ IV PRN ×2 (07:10→18:31)
[2020-08-24 07:26] LABS: CHLORIDE 112 mEq/L (98-107)
[2020-08-24] MEDS: DOCUSATE SODIUM 250MG CAPSULE PO SCH (08:54)
[2020-08-24] MEDS: PREDNISONE 20MG TABLET PO SCH (08:54)
[2020-08-24] MEDS: AMLODIPINE 5MG TABLET PO SCH ×2 (08:54→20:34)
[2020-08-24] MEDS: QUETIAPINE FUMARATE 50MG TABLET PO SCH ×2 (08:54→20:34)
[2020-08-24] MEDS: HYDRALAZINE HCL 100MG TABLET PO SCH ×2 (08:55→20:34)
[2020-08-24] MEDS: PANTOPRAZOLE SODIUM 40 MG/VIAL IV SCH (08:55)
[2020-08-24] MEDS: LEVETIRACETAM 500MG PREMIX 100 ML IV SCH ×2 (08:55→20:34)
[2020-08-24] MEDS: METOCLOPRAMIDE HCL 10MG/2ML VIAL IV SCH ×2 (11:46→17:23)
[2020-08-24 16:27] LABS: TOTAL IRON BINDING CAPACITY 121 ug/dL (250-450)
[2020-08-24] MEDS: ATORVASTATIN CALCIUM 40MG TABLET PO SCH (20:34)
[2020-08-25] VITALS (12 sets, daily range): BP systolic 111–161; BP diastolic 62–82
[2020-08-25] MEDS: BLOOD SUGAR DIAGNOSTIC STRIP TEST SCH ×4 (00:04→18:29)
[2020-08-25] MEDS: METOCLOPRAMIDE HCL 10MG/2ML VIAL IV SCH ×5 (00:17→23:42)
[2020-08-25] MEDS: IPRATROPIUM/ALBUTEROL 0.5-3(2.5)MG/3ML NEB HHN SCH ×4 (02:57→20:39)
[2020-08-25] MEDS: LORAZEPAM 2MG/ML CPJ IV PRN ×3 (04:25→12:37)
[2020-08-25] MEDS: INSULIN LISPRO 100 UNITS/ML SUBCUT SCH ×4 (06:00→18:00)
[2020-08-25 06:41] LABS: BASOPHILS % 0.4 % (0.0-2.0); EOSINOPHILS % 1.5 % (0.0-5.0); HEMATOCRIT. 21.6 % (42.0-52.0); HEMOGLOBIN. 7.2 g/dL (14.0-18.0); LYMPHOCYTES % 7.7 % (20.0-50.0); MEAN CORPUSCULAR HEMOGLOBIN 31.4 pg (28.0-32.0); MEAN CORPUSCULAR VOLUME 93.9 fL (80.0-94.0); MEAN PLATELET VOLUME 8.1 fl (7.4-10.4); MONOCYTES % 2.8 % (2.0-8.0); NEUTROPHILS % 87.6 % (40.0-76.0); PLATELET 82 x1000/uL (130-400); RED CELL DISTRIBUTION WIDTH 13.2 % (11.6-14.6)
[2020-08-25 07:20] LABS: CHLORIDE 112 mEq/L (98-107)
[2020-08-25] MEDS: DOCUSATE SODIUM 250MG CAPSULE PO SCH (08:10)
[2020-08-25] MEDS: ACETAMINOPHEN 325MG TABLET PO PRN (08:10)
[2020-08-25] MEDS: PANTOPRAZOLE SODIUM 40 MG/VIAL IV SCH (08:11)
[2020-08-25] MEDS: QUETIAPINE FUMARATE 50MG TABLET PO SCH (08:11)
[2020-08-25] MEDS: AMLODIPINE 5MG TABLET PO SCH ×2 (08:11→20:16)
[2020-08-25] MEDS: PREDNISONE 20MG TABLET PO SCH (08:11)
[2020-08-25] MEDS: LEVETIRACETAM 500MG PREMIX 100 ML IV SCH ×2 (08:12→20:17)
[2020-08-25] MEDS: HYDRALAZINE HCL 100MG TABLET PO SCH ×2 (10:20→20:16)
[2020-08-25] MEDS: MORPHINE SULFATE 4 MG/ML CPJ (NOT FOR IM USE) IV PRN (11:04)
[2020-08-25] MEDS: HALOPERIDOL LACTATE 5MG/ML VIAL IM PRN (16:25)
[2020-08-25] MEDS ORDERED: POTASSIUM CHLORIDE 20MEQ TABLET SR PO NR (16:45)
[2020-08-25] MEDS ORDERED: POTASSIUM CHLORIDE 20MEQ/PACKET PO NR ×2 (17:00→17:15)
[2020-08-25] MEDS: HYDRALAZINE 20MG/ML VIAL IV PRN (18:59)
[2020-08-25] MEDS: QUETIAPINE FUMARATE 25MG TABLET PO SCH (20:16)
[2020-08-25] MEDS: ATORVASTATIN CALCIUM 40MG TABLET PO SCH (20:16)
[2020-08-26] VITALS (21 sets, daily range): BP systolic 112–168; BP diastolic 57–96
[2020-08-26] MEDS: IPRATROPIUM/ALBUTEROL 0.5-3(2.5)MG/3ML NEB HHN SCH ×4 (04:15→21:50)
[2020-08-26] MEDS: HYDRALAZINE 20MG/ML VIAL IV PRN (05:20)
[2020-08-26] MEDS: METOCLOPRAMIDE HCL 10MG/2ML VIAL IV SCH ×3 (05:20→18:45)
[2020-08-26] MEDS: INSULIN LISPRO 100 UNITS/ML SUBCUT SCH ×4 (06:00→18:00)
[2020-08-26] MEDS: BLOOD SUGAR DIAGNOSTIC STRIP TEST SCH ×4 (06:19→18:49)
[2020-08-26] MEDS: PANTOPRAZOLE SODIUM 40 MG/VIAL IV SCH (08:40)
[2020-08-26] MEDS: DOCUSATE SODIUM 250MG CAPSULE PO SCH (08:41)
[2020-08-26] MEDS: QUETIAPINE FUMARATE 25MG TABLET PO SCH (08:41)
[2020-08-26] MEDS: CLONIDINE 0.1MG TABLET PO PRN (08:41)
[2020-08-26] MEDS: AMLODIPINE 5MG TABLET PO SCH ×2 (08:41→21:14)
[2020-08-26] MEDS: HALOPERIDOL LACTATE 5MG/ML VIAL IM PRN (08:41)
[2020-08-26 08:42] LABS: BASOPHILS % 0.1 % (0.0-2.0); EOSINOPHILS % 3.1 % (0.0-5.0); HEMATOCRIT. 25.2 % (42.0-52.0); HEMOGLOBIN. 8.6 g/dL (14.0-18.0); LYMPHOCYTES % 8.3 % (20.0-50.0); MEAN CORPUSCULAR HEMOGLOBIN 29.5 pg (28.0-32.0); MEAN CORPUSCULAR VOLUME 86.4 fL (80.0-94.0); MEAN PLATELET VOLUME 8.1 fl (7.4-10.4); MONOCYTES % 2.4 % (2.0-8.0); NEUTROPHILS % 86.1 % (40.0-76.0); PLATELET 73 x1000/uL (130-400); RED BLOOD CELL COUNT 2.92 mill/uL (4.7-6.1)
[2020-08-26] MEDS: ACETAMINOPHEN 325MG TABLET PO PRN (08:42)
[2020-08-26] MEDS: ONDANSETRON HCL 4MG/2ML INJ IV PRN ×2 (08:42→14:03)
[2020-08-26] MEDS: HYDRALAZINE HCL 100MG TABLET PO SCH ×2 (08:42→21:13)
[2020-08-26] MEDS: LEVETIRACETAM 500MG PREMIX 100 ML IV SCH ×2 (09:02→21:12)
[2020-08-26 09:05] LABS: CHLORIDE 111 mEq/L (98-107)
[2020-08-26] MEDS ORDERED: ACETAMINOPHEN 325MG TABLET PEG PRN (15:15)
[2020-08-26 16:49] LABS: PLATELET ESTIMATE DECREASED
[2020-08-26] MEDS ORDERED: DEXT 5% WATER 500 ML IV ONE (20:00)
[2020-08-26] MEDS: ATORVASTATIN CALCIUM 40MG TABLET PO SCH (21:14)
[2020-08-26] MEDS: QUETIAPINE FUMARATE 50MG TABLET PO SCH (21:15)
[2020-08-26 21:17] LABS: BASOPHILS % 0.3 % (0.0-2.0); HEMATOCRIT. 29.6 % (42.0-52.0); HEMOGLOBIN. 9.8 g/dL (14.0-18.0); LYMPHOCYTES % 10.2 % (20.0-50.0); MEAN CORPUSCULAR HEMOGLOBIN 28.4 pg (28.0-32.0); MEAN CORPUSCULAR VOLUME 85.7 fL (80.0-94.0); MEAN PLATELET VOLUME 7.8 fl (7.4-10.4); MONOCYTES % 3.2 % (2.0-8.0); NEUTROPHILS % 82.3 % (40.0-76.0); PLATELET 62 x1000/uL (130-400); RED BLOOD CELL COUNT 3.46 mill/uL (4.7-6.1); RED CELL DISTRIBUTION WIDTH 21.3 % (11.6-14.6)
[2020-08-27] VITALS (11 sets, daily range): BP systolic 115–157; BP diastolic 62–85
[2020-08-27] MEDS: METOCLOPRAMIDE HCL 10MG/2ML VIAL IV SCH ×4 (00:37→17:27)
[2020-08-27] MEDS: BLOOD SUGAR DIAGNOSTIC STRIP TEST SCH ×4 (00:37→17:17)
[2020-08-27] MEDS: MORPHINE SULFATE 2 MG/ML CPJ (NOT FOR IM USE) IV PRN ×4 (01:06→17:28)
[2020-08-27] MEDS: HALOPERIDOL LACTATE 5MG/ML VIAL IM PRN ×2 (02:39→11:09)
[2020-08-27] MEDS: IPRATROPIUM/ALBUTEROL 0.5-3(2.5)MG/3ML NEB HHN SCH ×3 (04:05→14:10)
[2020-08-27 05:35] LABS: CHLORIDE 110 mEq/L (98-107)
[2020-08-27 05:50] LABS: PHOSPHORUS 1.9 mg/dL (2.5-4.9)
[2020-08-27] MEDS: INSULIN LISPRO 100 UNITS/ML SUBCUT SCH ×4 (06:00→17:17)
[2020-08-27] MEDS: DIPHENHYDRAMINE 50MG CAPSULE PO PRN ×2 (07:53→14:04)
[2020-08-27] MEDS: LEVETIRACETAM 500MG PREMIX 100 ML IV SCH (08:03)
[2020-08-27] MEDS: PANTOPRAZOLE SODIUM 40 MG/VIAL IV SCH (08:03)
[2020-08-27] MEDS: AMLODIPINE 5MG TABLET PO SCH (08:04)
[2020-08-27] MEDS: DOCUSATE SODIUM 250MG CAPSULE PO SCH (08:04)
[2020-08-27] MEDS: CLONIDINE 0.1MG TABLET PO PRN (08:04)
[2020-08-27] MEDS: QUETIAPINE FUMARATE 50MG TABLET PO SCH (08:04)
[2020-08-27] MEDS: HYDRALAZINE HCL 100MG TABLET PO SCH (08:13)
[2020-08-27] MEDS: ONDANSETRON HCL 4MG/2ML INJ IV PRN ×2 (08:36→14:05)
[2020-08-27 12:12] LABS: BASOPHILS % 0.4 % (0.0-2.0); EOSINOPHILS % 3.2 % (0.0-5.0); HEMATOCRIT. 27.9 % (42.0-52.0); HEMOGLOBIN. 9.5 g/dL (14.0-18.0); LYMPHOCYTES % 15.5 % (20.0-50.0); MEAN PLATELET VOLUME 7.9 fl (7.4-10.4); MONOCYTES % 3.7 % (2.0-8.0); NEUTROPHILS % 77.2 % (40.0-76.0); PLATELET 59 x1000/uL (130-400); RED BLOOD CELL COUNT 3.27 mill/uL (4.7-6.1); RED CELL DISTRIBUTION WIDTH 20.8 % (11.6-14.6)
[2020-08-27 12:18] LABS: MEAN CORPUSCULAR VOLUME 85.3 fL (80.0-94.0)
[2020-08-27 14:41] LABS: HIV SCREEN 4G Non Reactive (Non Reactive)
== END 2020-08-27 20:08 | DRG 4 ==
LOC: ER 09:40 → MICUSO 13:20 → EDBD 13:20 → EDBEDREQTM 13:29 → EDBEDREQ 13:29 → 3WST 07-30 02:14 → 5EST 08-02 17:55 → MICUNO 08-19 16:00 → MICUSO 08-20 21:45 → 5EST 08-22 16:39
PROVIDERS: ADMIT Internal Medicine; ATTEND Internal Medicine
PROC: 5A1955Z Respiratory Ventilation, Greater than 96 Consecutive Hours (ICD-10-PCS; 2020-08-02)
PROC: 0BH17EZ Insertion of Endotracheal Airway into Trachea, Via Natural or Artificial Opening (ICD-10-PCS; 2020-08-02)
PROC: 02H633Z Insertion of Infusion Device into Right Atrium, Percutaneous Approach (ICD-10-PCS; 2020-08-03)
PROC: 001 Central Nervous System and Cranial Nerves, Bypass (ICD-10-PCS; 2020-08-06)
PROC: 00963ZZ Drainage of Cerebral Ventricle, Percutaneous Approach (ICD-10-PCS; 2020-08-06)
PROC: 00N00ZZ Release Brain, Open Approach (ICD-10-PCS; principal; 2020-08-07)
PROC: 0DB78ZX Excision of Stomach, Pylorus, Via Natural or Artificial Opening Endoscopic, Diagnostic (ICD-10-PCS; 2020-08-07)
PROC: 0DH63UZ Insertion of Feeding Device into Stomach, Percutaneous Approach (ICD-10-PCS; 2020-08-07)
PROC: 00U207Z Supplement Dura Mater with Autologous Tissue Substitute, Open Approach (ICD-10-PCS; 2020-08-07)
PROC: 0B110F4 Bypass Trachea to Cutaneous with Tracheostomy Device, Open Approach (ICD-10-PCS; 2020-08-16)
PROC: 0GBJ0ZZ Excision of Thyroid Gland Isthmus, Open Approach (ICD-10-PCS; 2020-08-16)
PROC: 0GBJ0ZZ Excision of Thyroid Gland Isthmus, Open Approach (ICD-10-PCS; 2020-08-16)
PROC: 30233N1 Transfusion of Nonautologous Red Blood Cells into Peripheral Vein, Percutaneous Approach (ICD-10-PCS; 2020-08-17)
DX: G90.8 Other disorders of autonomic nervous system (principal); A41.9 Sepsis, unspecified organism; E87.8 Other disorders of electrolyte and fluid balance, not elsewhere classified; F17.210 Nicotine dependence, cigarettes, uncomplicated; E78.5 Hyperlipidemia, unspecified; I11.0 Hypertensive heart disease with heart failure; R26.89 Other abnormalities of gait and mobility; I50.30 Unspecified diastolic (congestive) heart failure; J96.02 Acute respiratory failure with hypercapnia; J69.0 Pneumonitis due to inhalation of food and vomit; N17.0 Acute kidney failure with tubular necrosis; I63.9 Cerebral infarction, unspecified; E78.00 Pure hypercholesterolemia, unspecified; E87.4 Mixed disorder of acid-base balance; E86.0 Dehydration; I49.3 Ventricular premature depolarization; R53.81 Other malaise; I48.91 Unspecified atrial fibrillation; E11.65 Type 2 diabetes mellitus with hyperglycemia; G91.9 Hydrocephalus, unspecified; L89.156 Pressure-induced deep tissue damage of sacral region; S90.829A Blister (nonthermal), unspecified foot, initial encounter; E11.51 Type 2 diabetes mellitus with diabetic peripheral angiopathy without gangrene; J44.0 Chronic obstructive pulmonary disease with (acute) lower respiratory infection; I61.4 Nontraumatic intracerebral hemorrhage in cerebellum; G93.40 Encephalopathy, unspecified; I61.5 Nontraumatic intracerebral hemorrhage, intraventricular; D53.9 Nutritional anemia, unspecified; E83.51 Hypocalcemia; E87.0 Hyperosmolality and hypernatremia; I31.3 Pericardial effusion (noninflammatory); J96.01 Acute respiratory failure with hypoxia; Z20.822 Contact with and (suspected) exposure to COVID-19; K29.70 Gastritis, unspecified, without bleeding; R47.01 Aphasia; T46.4X5A Adverse effect of angiotensin-converting-enzyme inhibitors, initial encounter; T78.3XXA Angioneurotic edema, initial encounter; Z86.73 Personal history of transient ischemic attack (TIA), and cerebral infarction without residual deficits; Z82.49 Family history of ischemic heart disease and other diseases of the circulatory system; Z98.2 Presence of cerebrospinal fluid drainage device; Z99.11 Dependence on respirator [ventilator] status; Y92.89 Other specified places as the place of occurrence of the external cause
CPT/HCPCS: 36415; 36600; 70496; 70544; 70551; 71045; 76770; 76937; 80048; 80053; 80061; 80305; 80320; 81003; 82040; 82043; 82140; 82270; 82330; 82375; 82570; 82607; 82728; 82746; 82805; 82962; 83036; 83540; 83550; 83735; 83880; 83935; 84100; 84132; 84134; 84145; 84156; 84300; 84443; 84478; 84484; 85025; 85027; 85384; 86850; 86900; 86920; 87070; 87389; 87426; 88305; 88313; 90686; 90732; 92523; 92610; 93005; 93306; 93880; 93970; 94002; 94003; 94640; 97162; 97164; 97166; 97530; 99285; A6261; C1713; C1725; C9113; J0360; J0690; J1100; J1170; J1200; J1265; J1630; J1650; J1815; J1953; J2060; J2250; J2270; J2370; J2405; J2543; J2704; J2765; J2920; J2930; J3010; J3490; J7030; J7040; J7042; J7050; J7060; J7070; J7120; J7121; J7512; J7608; J8597; P9016; P9047; Q0163; Q9967; A4315; G0480

== ENCOUNTER 2020-09-23 12:11 | Inpatient (IN) | payer MEDICAID, OTHER ==
[~2020-09-23] VITALS: Ht 177.8 cm; Wt 74.4 kg
[2020-09-23] MEDS ORDERED: IPRATROPIUM BROMIDE (0.02%) 0.5MG/2.5ML NEB HHN STA (12:19)
[2020-09-23] MEDS ORDERED: METHYLPREDNISOLONE SOD SUCC 125 MG/2 ML VIAL IV STA (12:19)
[2020-09-23] MEDS ORDERED: ALBUTEROL (0.083%) 2.5MG/3ML NEB HHN STA (12:19)
[2020-09-23] MEDS ORDERED: SODIUM CHLORIDE 0.9% 1,000 ML IV ONE (12:30)
[2020-09-23] MEDS ORDERED: LEVOFLOXACIN 750MG PREMIX 150 ML IV ONE (12:30)
[2020-09-23] MEDS ORDERED: VANCOMYCIN 1 G PREMIX 200 ML IV ONE (12:30)
[2020-09-23] MEDS ORDERED: PIPERACILLIN/TAZ 3.375G PREMIX 50 ML IV ONE (12:30)
[2020-09-23 12:35] LABS: MEAN CORPUSCULAR HEMOGLOBIN 26.9 pg (28.0-32.0); MEAN CORPUSCULAR VOLUME 84.5 fL (80.0-94.0); MEAN PLATELET VOLUME 8.2 fl (7.4-10.4); PLATELET 465 x1000/uL (130-400); RED BLOOD CELL COUNT 2.45 mill/uL (4.7-6.1); RED CELL DISTRIBUTION WIDTH 23.3 % (11.6-14.6)
[2020-09-23 12:48] LABS: HEMATOCRIT. 20.7 % (42.0-52.0); HEMOGLOBIN. 6.6 g/dL (14.0-18.0)
[2020-09-23 12:52] LABS: INR 1.1; PROTHROMBIN TIME 11.7 sec (9.6-11.0)
[2020-09-23 12:56] LABS: CHLORIDE 101 mEq/L (98-107)
[2020-09-23] MEDS ORDERED: FLUCONAZOLE 400MG/200ML PREMIX IV ONE (13:00)
[2020-09-23] MEDS ORDERED: FLUCONAZOLE 400MG/200ML BAG 200 ML IV NR (13:00)
[2020-09-23 13:09] LABS: PLATELET ESTIMATE INCREASED
[2020-09-23 14:06] LABS: CLARITY URINE CLOUDY (CLEAR); COLOR URINE YELLOW (YELLOW); KETONES URINE NEGATIVE (NEGATIVE); LEUKOCYTE ESTERASE URINE 2+ (NEGATIVE); NITRITE URINE NEGATIVE (NEGATIVE); OCCULT BLOOD URINE NEGATIVE (NEGATIVE); PROTEIN URINE 1+ (NEGATIVE); SPECIFIC GRAVITY URINE 1.017 (1.005-1.030)
[2020-09-24] VITALS (9 sets, daily range): BP systolic 104–133; BP diastolic 63–75
[2020-09-24 08:07] LABS: HEMATOCRIT. 23.2 % (42.0-52.0); HEMOGLOBIN. 7.4 g/dL (14.0-18.0); RED BLOOD CELL COUNT 2.74 mill/uL (4.7-6.1)
[2020-09-24 08:08] LABS: MEAN CORPUSCULAR HEMOGLOBIN 27.2 pg (28.0-32.0); MEAN CORPUSCULAR VOLUME 84.7 fL (80.0-94.0); MEAN PLATELET VOLUME 8.1 fl (7.4-10.4); PLATELET 386 x1000/uL (130-400); RED CELL DISTRIBUTION WIDTH 22.2 % (11.6-14.6)
[2020-09-24] MEDS ORDERED: ONDANSETRON HCL 4MG/2ML INJ IV PRN (09:30)
[2020-09-24] MEDS ORDERED: ACETAMINOPHEN 325MG TABLET PO PRN (09:30)
[2020-09-24] MEDS: SODIUM CHLORIDE 0.9% 1,000 ML IV SCH (09:30)
[2020-09-24] MEDS ORDERED: VANCOMYCIN 500 MG PREMIX 100 ML IV SCH (11:00)
[2020-09-24 11:11] LABS: PLATELET ESTIMATE NORMAL
[2020-09-24] MEDS ORDERED: PIPERACILLIN/TAZOBACTAM 3.375 G in DEXT 5% WATER 100 ML IV SCH (12:00)
[2020-09-24 13:50] LABS: BG BASE EXCESS 3.4 mmol/L (-2.0-2.0); BG CARBOXYHEMOGLOBIN 0.3 % (0.5-1.5); BG DEOXYHEMOGLOBIN 0.6 % (0.0-5.0); BG FRACTION INSPIRED OXYGEN 100; BG HCO3 ACT 26.1 mmol/L (22.0-26.0); BG METHEMOGLOBIN 0.3 % (0.0-1.5); BG OXYGEN SATURATION 99.4 % (92.0-98.5); BG OXYHEMOGLOBIN 98.8 % (94.0-97.0); BG PCO2 31.7 mmHg (35.0-45.0); BG PH 7.533 (7.350-7.450); BG PO2 360.5 mmHg (75.0-100.0); BG SAMPLE SITE RIGHT RADIAL; BG TOTAL HEMOGLOBIN 8.3 g/dL (12.0-18.0); BG TOTAL RESPIRATORY RATE 39 b/min; BG VENT MODE VENT - AC
[2020-09-24] MEDS: VANCOMYCIN 1 G PREMIX 200 ML IV SCH (15:19)
[2020-09-24] MEDS: IPRATROPIUM/ALBUTEROL 0.5-3(2.5)MG/3ML NEB HHN SCH (20:38)
[2020-09-24] MEDS: CEFEPIME 2,000 MG in DEXT 5% WATER 100 ML IV SCH (20:39)
[2020-09-24] MEDS: METRONIDAZOLE 500 MG PREMIX 100 ML IV SCH (21:59)
[2020-09-24] MEDS: LEVETIRACETAM 500MG PREMIX 100 ML IV SCH (23:40)
[2020-09-25] VITALS (11 sets, daily range): BP systolic 111–137; BP diastolic 62–77
[2020-09-25] MEDS: DEXAMETHASONE 4MG/ML 1ML VIAL IV SCH ×4 (00:03→18:54)
[2020-09-25] MEDS: SODIUM CHLORIDE 0.9% 1,000 ML IV SCH ×2 (00:34→10:06)
[2020-09-25] MEDS: IPRATROPIUM/ALBUTEROL 0.5-3(2.5)MG/3ML NEB HHN SCH ×4 (00:37→20:37)
[2020-09-25] MEDS: METRONIDAZOLE 500 MG PREMIX 100 ML IV SCH ×3 (06:23→21:25)
[2020-09-25 07:22] LABS: HEMATOCRIT. 24.9 % (42.0-52.0); HEMOGLOBIN. 7.9 g/dL (14.0-18.0); MEAN CORPUSCULAR HEMOGLOBIN 27.2 pg (28.0-32.0); MEAN CORPUSCULAR VOLUME 85.8 fL (80.0-94.0); MEAN PLATELET VOLUME 8.8 fl (7.4-10.4); PLATELET 381 x1000/uL (130-400); RED CELL DISTRIBUTION WIDTH 22.8 % (11.6-14.6)
[2020-09-25 07:41] LABS: CHLORIDE 112 mEq/L (98-107)
[2020-09-25 08:28] LABS: BG BASE EXCESS 3.6 mmol/L (-2.0-2.0); BG CARBOXYHEMOGLOBIN 0.3 % (0.5-1.5); BG DEOXYHEMOGLOBIN 1.8 % (0.0-5.0); BG FRACTION INSPIRED OXYGEN 40; BG HCO3 ACT 27.2 mmol/L (22.0-26.0); BG METHEMOGLOBIN 0.2 % (0.0-1.5); BG OXYGEN SATURATION 98.2 % (92.0-98.5); BG OXYHEMOGLOBIN 97.7 % (94.0-97.0); BG PH 7.485 (7.350-7.450); BG PO2 117.6 mmHg (75.0-100.0); BG SAMPLE SITE RIGHT RADIAL; BG TOTAL HEMOGLOBIN 8.5 g/dL (12.0-18.0); BG TOTAL RESPIRATORY RATE 17 b/min; BG VENT MODE VENT - AC
[2020-09-25 09:13] LABS: PLATELET ESTIMATE NORMAL
[2020-09-25] MEDS: CEFEPIME 2,000 MG in DEXT 5% WATER 100 ML IV SCH (10:06)
[2020-09-25] MEDS: LEVETIRACETAM 500MG PREMIX 100 ML IV SCH ×2 (11:13→21:37)
[2020-09-25] MEDS: VANCOMYCIN 1 G PREMIX 200 ML IV SCH (12:54)
[2020-09-25] MEDS ORDERED: DEXTROSE 50% WATER 50ML SYRINGE IV PRN (14:45)
[2020-09-25] MEDS: BLOOD SUGAR DIAGNOSTIC STRIP TEST SCH ×2 (18:02→21:00)
[2020-09-25] MEDS: CEFTRIAXONE 2 G in DEXTROSE 5% WATER 50 ML IV SCH (18:54)
[2020-09-25] MEDS: INSULIN LISPRO 100 UNITS/ML SUBCUT SCH ×2 (18:54→21:00)
[2020-09-25] MEDS ORDERED: VANCOMYCIN 1 G PREMIX 200 ML IV SCH (23:00)
[2020-09-26] VITALS (11 sets, daily range): BP systolic 113–152; BP diastolic 63–76
[2020-09-26] MEDS: DEXAMETHASONE 4MG/ML 1ML VIAL IV SCH ×5 (02:06→23:34)
[2020-09-26] MEDS: SODIUM CHLORIDE 0.9% 1,000 ML IV SCH ×3 (02:07→23:38)
[2020-09-26] MEDS: IPRATROPIUM/ALBUTEROL 0.5-3(2.5)MG/3ML NEB HHN SCH ×4 (02:13→20:31)
[2020-09-26 05:29] LABS: CHLORIDE 116 mEq/L (98-107)
[2020-09-26] MEDS: METRONIDAZOLE 500 MG PREMIX 100 ML IV SCH ×3 (06:03→21:24)
[2020-09-26 06:17] LABS: HEMATOCRIT. 24.1 % (42.0-52.0); HEMOGLOBIN. 7.7 g/dL (14.0-18.0); MEAN CORPUSCULAR HEMOGLOBIN 27.2 pg (28.0-32.0); MEAN CORPUSCULAR VOLUME 85.2 fL (80.0-94.0); MEAN PLATELET VOLUME 8.9 fl (7.4-10.4); PLATELET 374 x1000/uL (130-400); RED BLOOD CELL COUNT 2.82 mill/uL (4.7-6.1); RED CELL DISTRIBUTION WIDTH 22.8 % (11.6-14.6)
[2020-09-26] MEDS: BLOOD SUGAR DIAGNOSTIC STRIP TEST SCH ×4 (07:51→20:30)
[2020-09-26] MEDS: INSULIN LISPRO 100 UNITS/ML SUBCUT SCH ×4 (08:01→20:58)
[2020-09-26] MEDS: LEVETIRACETAM 500MG PREMIX 100 ML IV SCH ×2 (08:02→20:15)
[2020-09-26 09:53] LABS: PLATELET ESTIMATE NORMAL
[2020-09-26] MEDS: ASCORBIC ACID 500 MG TABLET PO SCH (14:06)
[2020-09-26] MEDS: ZINC SULFATE 220 MG ( 50 ) CAPSULE PO SCH (14:06)
[2020-09-26] MEDS: CEFTRIAXONE 2 G in DEXTROSE 5% WATER 50 ML IV SCH (17:39)
[2020-09-26] MEDS: VANCOMYCIN 750 MG PREMIX 150 ML IV SCH (18:04)
[2020-09-27] VITALS (12 sets, daily range): BP systolic 129–177; BP diastolic 65–96
[2020-09-27] MEDS: IPRATROPIUM/ALBUTEROL 0.5-3(2.5)MG/3ML NEB HHN SCH ×4 (02:05→20:23)
[2020-09-27] MEDS: DEXAMETHASONE 4MG/ML 1ML VIAL IV SCH ×4 (05:33→23:28)
[2020-09-27] MEDS: METRONIDAZOLE 500 MG PREMIX 100 ML IV SCH ×3 (05:35→22:13)
[2020-09-27 06:12] LABS: CHLORIDE 122 mEq/L (98-107)
[2020-09-27 07:30] LABS: HEMATOCRIT. 26.2 % (42.0-52.0); HEMOGLOBIN. 8.1 g/dL (14.0-18.0); MEAN CORPUSCULAR HEMOGLOBIN 26.9 pg (28.0-32.0); MEAN CORPUSCULAR VOLUME 87.4 fL (80.0-94.0); MEAN PLATELET VOLUME 8.8 fl (7.4-10.4); PLATELET 418 x1000/uL (130-400); RED CELL DISTRIBUTION WIDTH 22.5 % (11.6-14.6)
[2020-09-27] MEDS: BLOOD SUGAR DIAGNOSTIC STRIP TEST SCH ×4 (08:08→20:41)
[2020-09-27] MEDS: ASCORBIC ACID 500 MG TABLET PO SCH (08:22)
[2020-09-27] MEDS: LEVETIRACETAM 500MG PREMIX 100 ML IV SCH ×2 (08:22→20:41)
[2020-09-27] MEDS: INSULIN LISPRO 100 UNITS/ML SUBCUT SCH ×4 (08:24→20:41)
[2020-09-27 08:50] LABS: PLATELET ESTIMATE SLIGHTLY INCREASED
[2020-09-27] MEDS: VANCOMYCIN 750 MG PREMIX 150 ML IV SCH (12:22)
[2020-09-27] MEDS: ZINC SULFATE 220 MG ( 50 ) CAPSULE PO SCH (13:31)
[2020-09-27] MEDS ORDERED: ASCORBIC ACID 500 MG TABLET PO SCH (14:00)
[2020-09-27] MEDS: CEFTRIAXONE 2 G in DEXTROSE 5% WATER 50 ML IV SCH (16:28)
[2020-09-27] MEDS: SODIUM CHLORIDE 0.9% 1,000 ML IV SCH (17:01)
[2020-09-28] VITALS (13 sets, daily range): BP systolic 118–173; BP diastolic 63–92
[2020-09-28] MEDS: CLONIDINE 0.1MG TABLET PO PRN ×2 (01:06→08:19)
[2020-09-28] MEDS: IPRATROPIUM/ALBUTEROL 0.5-3(2.5)MG/3ML NEB HHN SCH ×4 (02:16→20:34)
[2020-09-28] MEDS: VANCOMYCIN 750 MG PREMIX 150 ML IV SCH (05:14)
[2020-09-28] MEDS: DEXAMETHASONE 4MG/ML 1ML VIAL IV SCH (05:14)
[2020-09-28] MEDS: METRONIDAZOLE 500 MG PREMIX 100 ML IV SCH ×3 (06:50→21:06)
[2020-09-28] MEDS: SODIUM CHLORIDE 0.9% 1,000 ML IV SCH (06:50)
[2020-09-28] MEDS: BLOOD SUGAR DIAGNOSTIC STRIP TEST SCH ×4 (07:28→23:20)
[2020-09-28 08:09] LABS: HEMATOCRIT. 26.3 % (42.0-52.0); HEMOGLOBIN. 8.2 g/dL (14.0-18.0); MEAN CORPUSCULAR HEMOGLOBIN 27.1 pg (28.0-32.0); MEAN CORPUSCULAR VOLUME 86.7 fL (80.0-94.0); PLATELET 388 x1000/uL (130-400); RED BLOOD CELL COUNT 3.04 mill/uL (4.7-6.1); RED CELL DISTRIBUTION WIDTH 22.7 % (11.6-14.6)
[2020-09-28] MEDS: INSULIN LISPRO 100 UNITS/ML SUBCUT SCH ×5 (08:10→23:20)
[2020-09-28] MEDS: ASCORBIC ACID 500 MG TABLET PO SCH (08:19)
[2020-09-28] MEDS: LEVETIRACETAM 500MG PREMIX 100 ML IV SCH ×2 (08:19→20:01)
[2020-09-28] MEDS: AMLODIPINE 10MG TABLET PO SCH (08:20)
[2020-09-28 08:24] LABS: CHLORIDE 124 mEq/L (98-107)
[2020-09-28] MEDS: ZINC SULFATE 220 MG ( 50 ) CAPSULE PO SCH (13:11)
[2020-09-28] MEDS: INSULIN GLARGINE UD 100 UNITS/ML SYR SUBCUT SCH ×2 (14:22→23:20)
[2020-09-28] MEDS: DEXAMETHASONE 10 MG/ML VIAL IV SCH (16:44)
[2020-09-28] MEDS: CEFTRIAXONE 2 G in DEXTROSE 5% WATER 50 ML IV SCH (16:44)
[2020-09-28 17:39] LABS: PLATELET ESTIMATE NORMAL
[2020-09-28] MEDS ORDERED: GLUC1KIT IM (18:30)
[2020-09-28] MEDS ORDERED: ASCO-339 GT (18:30)
[2020-09-28] MEDS ORDERED: MOM GT (18:30)
[2020-09-28] MEDS ORDERED: ACET-2128 GT (18:30)
[2020-09-28] MEDS ORDERED: CLON-457 GT (18:30)
[2020-09-28] MEDS ORDERED: DOCU-138 GT (18:30)
[2020-09-28] MEDS ORDERED: ATOR40TA70 GT (18:30)
[2020-09-28] MEDS ORDERED: HYDR-4346 GT (18:30)
[2020-09-28] MEDS ORDERED: BISA10SU62 RC (18:30)
[2020-09-28] MEDS ORDERED: AMLO5TAB88 GT (18:30)
[2020-09-28] MEDS ORDERED: MULT-1146 GT (18:30)
[2020-09-28] MEDS ORDERED: ONDA4TAB5 GT (18:30)
[2020-09-28] MEDS ORDERED: LEVE500T98 GT (18:30)
[2020-09-28] MEDS ORDERED: INSU100V37 SQ (18:30)
[2020-09-28] MEDS ORDERED: P20 GT (18:30)
[2020-09-28] MEDS ORDERED: LORA2DIS5 GT (18:30)
[2020-09-28] MEDS ORDERED: IPRA3AMP9 HHN (18:30)
[2020-09-28] MEDS ORDERED: QUET100T GT (18:30)
[2020-09-28] MEDS ORDERED: ALBU6.7H11 INH (18:30)
[2020-09-28] MEDS ORDERED: NA P230E RC (18:30)
[2020-09-28] MEDS ORDERED: PROT40 GT (18:30)
[2020-09-28] MEDS ORDERED: HYDR100T26 GT (18:30)
[2020-09-29] VITALS (12 sets, daily range): BP systolic 119–169; BP diastolic 64–88
[2020-09-29] MEDS: IPRATROPIUM/ALBUTEROL 0.5-3(2.5)MG/3ML NEB HHN SCH ×4 (00:05→20:20)
[2020-09-29] MEDS: METRONIDAZOLE 500 MG PREMIX 100 ML IV SCH ×2 (05:37→13:08)
[2020-09-29] MEDS: DEXAMETHASONE 10 MG/ML VIAL IV SCH ×2 (05:37→17:14)
[2020-09-29] MEDS: BLOOD SUGAR DIAGNOSTIC STRIP TEST SCH ×4 (05:37→23:31)
[2020-09-29] MEDS: INSULIN LISPRO 100 UNITS/ML SUBCUT SCH ×4 (05:37→23:30)
[2020-09-29 05:54] LABS: HEMATOCRIT. 26.3 % (42.0-52.0); HEMOGLOBIN. 8.4 g/dL (14.0-18.0); MEAN CORPUSCULAR HEMOGLOBIN 27.5 pg (28.0-32.0); MEAN CORPUSCULAR VOLUME 85.4 fL (80.0-94.0); MEAN PLATELET VOLUME 8.7 fl (7.4-10.4); PLATELET 417 x1000/uL (130-400); RED BLOOD CELL COUNT 3.08 mill/uL (4.7-6.1); RED CELL DISTRIBUTION WIDTH 22.6 % (11.6-14.6)
[2020-09-29 05:55] LABS: CHLORIDE 121 mEq/L (98-107)
[2020-09-29] MEDS: ASCORBIC ACID 500 MG TABLET PO SCH (07:51)
[2020-09-29] MEDS: AMLODIPINE 10MG TABLET PO SCH (07:52)
[2020-09-29] MEDS: LEVETIRACETAM 500MG PREMIX 100 ML IV SCH ×2 (07:52→21:23)
[2020-09-29] MEDS: INSULIN GLARGINE UD 100 UNITS/ML SYR SUBCUT SCH ×2 (10:31→23:30)
[2020-09-29] MEDS: ZINC SULFATE 220 MG ( 50 ) CAPSULE PO SCH (13:08)
[2020-09-29 13:46] LABS: BG CARBOXYHEMOGLOBIN 0.3 % (0.5-1.5); BG DEOXYHEMOGLOBIN 2.3 % (0.0-5.0); BG FRACTION INSPIRED OXYGEN 30; BG HCO3 ACT 25.5 mmol/L (22.0-26.0); BG METHEMOGLOBIN 0.1 % (0.0-1.5); BG OXYGEN SATURATION 97.7 % (92.0-98.5); BG OXYHEMOGLOBIN 97.3 % (94.0-97.0); BG PCO2 35.5 mmHg (35.0-45.0); BG PH 7.475 (7.350-7.450); BG PO2 99.9 mmHg (75.0-100.0); BG SAMPLE SITE RIGHT RADIAL; BG TOTAL HEMOGLOBIN 9.3 g/dL (12.0-18.0); BG VENT MODE VENT - AC
[2020-09-29] MEDS: CEFTRIAXONE 2 G in DEXTROSE 5% WATER 50 ML IV SCH (17:15)
[2020-09-29 22:14] LABS: PLATELET ESTIMATE SLIGHTLY INCREASED
[2020-09-30] VITALS (12 sets, daily range): BP systolic 134–153; BP diastolic 68–85
[2020-09-30] MEDS: IPRATROPIUM/ALBUTEROL 0.5-3(2.5)MG/3ML NEB HHN SCH ×4 (02:26→20:26)
[2020-09-30] MEDS: DEXAMETHASONE 10 MG/ML VIAL IV SCH ×2 (05:38→18:17)
[2020-09-30] MEDS: BLOOD SUGAR DIAGNOSTIC STRIP TEST SCH ×4 (05:38→23:07)
[2020-09-30] MEDS: INSULIN LISPRO 100 UNITS/ML SUBCUT SCH ×4 (05:38→23:07)
[2020-09-30 06:22] LABS: CHLORIDE 117 mEq/L (98-107); HEMATOCRIT. 27.6 % (42.0-52.0); HEMOGLOBIN. 8.8 g/dL (14.0-18.0); MEAN CORPUSCULAR HEMOGLOBIN 27.7 pg (28.0-32.0); MEAN CORPUSCULAR VOLUME 86.5 fL (80.0-94.0); MEAN PLATELET VOLUME 8.8 fl (7.4-10.4); PLATELET 383 x1000/uL (130-400); RED BLOOD CELL COUNT 3.19 mill/uL (4.7-6.1); RED CELL DISTRIBUTION WIDTH 22.6 % (11.6-14.6)
[2020-09-30] MEDS: AMLODIPINE 10MG TABLET PO SCH (08:05)
[2020-09-30] MEDS: LEVETIRACETAM 500MG PREMIX 100 ML IV SCH ×2 (08:05→20:14)
[2020-09-30] MEDS: ASCORBIC ACID 500 MG TABLET PO SCH (08:06)
[2020-09-30] MEDS: INSULIN GLARGINE UD 100 UNITS/ML SYR SUBCUT SCH ×2 (10:15→23:06)
[2020-09-30] MEDS: ZINC SULFATE 220 MG ( 50 ) CAPSULE PO SCH (13:36)
[2020-09-30 13:51] LABS: PLATELET ESTIMATE NORMAL
[2020-09-30] MEDS: CEFTRIAXONE 2 G in DEXTROSE 5% WATER 50 ML IV SCH (16:02)
[2020-10-01] VITALS (12 sets, daily range): BP systolic 133–158; BP diastolic 72–87
[2020-10-01] MEDS: IPRATROPIUM/ALBUTEROL 0.5-3(2.5)MG/3ML NEB HHN SCH ×4 (01:58→20:29)
[2020-10-01] MEDS: INSULIN LISPRO 100 UNITS/ML SUBCUT SCH ×3 (05:19→18:25)
[2020-10-01] MEDS: BLOOD SUGAR DIAGNOSTIC STRIP TEST SCH ×4 (05:19→23:56)
[2020-10-01] MEDS: DEXAMETHASONE 10 MG/ML VIAL IV SCH ×2 (05:28→18:31)
[2020-10-01 07:27] LABS: HEMATOCRIT. 27.4 % (42.0-52.0); HEMOGLOBIN. 8.8 g/dL (14.0-18.0); MEAN CORPUSCULAR HEMOGLOBIN 27.6 pg (28.0-32.0); MEAN CORPUSCULAR VOLUME 85.8 fL (80.0-94.0); RED BLOOD CELL COUNT 3.19 mill/uL (4.7-6.1); RED CELL DISTRIBUTION WIDTH 21.7 % (11.6-14.6)
[2020-10-01 07:48] LABS: CHLORIDE 112 mEq/L (98-107)
[2020-10-01] MEDS: CLONIDINE 0.1MG TABLET PO PRN (08:41)
[2020-10-01] MEDS: ASCORBIC ACID 500 MG TABLET PO SCH (08:42)
[2020-10-01] MEDS: LEVETIRACETAM 500MG PREMIX 100 ML IV SCH ×2 (08:42→21:43)
[2020-10-01] MEDS: AMLODIPINE 10MG TABLET PO SCH (08:42)
[2020-10-01] MEDS: INSULIN GLARGINE UD 100 UNITS/ML SYR SUBCUT SCH ×2 (09:46→22:06)
[2020-10-01] MEDS: ZINC SULFATE 220 MG ( 50 ) CAPSULE PO SCH (13:06)
[2020-10-01 13:25] LABS: PLATELET ESTIMATE INCREASED
[2020-10-01 13:28] LABS: PLATELET 422 x1000/uL (130-400)
[2020-10-01] MEDS: CEFTRIAXONE 2 G in DEXTROSE 5% WATER 50 ML IV SCH (18:24)
[2020-10-02] VITALS (11 sets, daily range): BP systolic 112–177; BP diastolic 70–98
[2020-10-02] MEDS: IPRATROPIUM/ALBUTEROL 0.5-3(2.5)MG/3ML NEB HHN SCH ×3 (02:34→14:26)
[2020-10-02] MEDS: CLONIDINE 0.1MG TABLET PO PRN (04:39)
[2020-10-02] MEDS: BLOOD SUGAR DIAGNOSTIC STRIP TEST SCH ×3 (06:00→18:25)
[2020-10-02] MEDS: INSULIN LISPRO 100 UNITS/ML SUBCUT SCH ×4 (06:30→18:00)
[2020-10-02] MEDS: DEXAMETHASONE 10 MG/ML VIAL IV SCH ×2 (06:31→18:00)
[2020-10-02 07:18] LABS: HEMATOCRIT. 28.9 % (42.0-52.0); HEMOGLOBIN. 9.2 g/dL (14.0-18.0); MEAN CORPUSCULAR HEMOGLOBIN 27.9 pg (28.0-32.0); MEAN CORPUSCULAR VOLUME 87.4 fL (80.0-94.0); RED BLOOD CELL COUNT 3.31 mill/uL (4.7-6.1); RED CELL DISTRIBUTION WIDTH 22.2 % (11.6-14.6)
[2020-10-02 07:41] LABS: CHLORIDE 105 mEq/L (98-107)
[2020-10-02] MEDS: LEVETIRACETAM 500MG PREMIX 100 ML IV SCH (10:26)
[2020-10-02] MEDS: AMLODIPINE 10MG TABLET PO SCH (10:26)
[2020-10-02] MEDS: ASCORBIC ACID 500 MG TABLET PO SCH (10:26)
[2020-10-02] MEDS: INSULIN GLARGINE UD 100 UNITS/ML SYR SUBCUT SCH (10:28)
[2020-10-02] MEDS: ZINC SULFATE 220 MG ( 50 ) CAPSULE PO SCH (15:09)
[2020-10-02 16:45] LABS: PLATELET ESTIMATE NORMAL
[2020-10-02 16:46] LABS: PLATELET 382 x1000/uL (130-400)
[2020-10-02 16:48] LABS: MEAN PLATELET VOLUME 9.6 fl (7.4-10.4)
[2020-10-02] MEDS: CEFTRIAXONE 2 G in DEXTROSE 5% WATER 50 ML IV SCH (17:00)
== END 2020-10-02 21:25 | DRG 720 ==
LOC: ER 12:11 → MICUSO 19:52 → EDBEDREQ 19:54 → EDBEDREQSVC 19:54 → EDBEDREQTM 19:54 → 5EST 09-24 07:24
PROVIDERS: ADMIT Internal Medicine; ATTEND Internal Medicine
PROC: 5A1955Z Respiratory Ventilation, Greater than 96 Consecutive Hours (ICD-10-PCS; principal; 2020-09-23)
PROC: 30233N1 Transfusion of Nonautologous Red Blood Cells into Peripheral Vein, Percutaneous Approach (ICD-10-PCS; 2020-09-23)
DX: A41.9 Sepsis, unspecified organism (principal); J96.21 Acute and chronic respiratory failure with hypoxia; G93.5 Compression of brain; E43 Unspecified severe protein-calorie malnutrition; J69.0 Pneumonitis due to inhalation of food and vomit; G92 Toxic encephalopathy; Z99.11 Dependence on respirator [ventilator] status; I63.512 Cerebral infarction due to unspecified occlusion or stenosis of left middle cerebral artery; I63.522 Cerebral infarction due to unspecified occlusion or stenosis of left anterior cerebral artery; Z93.0 Tracheostomy status; L89.893 Pressure ulcer of other site, stage 3; N17.0 Acute kidney failure with tubular necrosis; N39.0 Urinary tract infection, site not specified; R13.10 Dysphagia, unspecified; J44.9 Chronic obstructive pulmonary disease, unspecified; D64.9 Anemia, unspecified; E78.00 Pure hypercholesterolemia, unspecified; E78.5 Hyperlipidemia, unspecified; E86.0 Dehydration; F03.90 Unspecified dementia, unspecified severity, without behavioral disturbance, psychotic disturbance, mood disturbance, and anxiety; F41.9 Anxiety disorder, unspecified; G40.909 Epilepsy, unspecified, not intractable, without status epilepticus; G83.11 Monoplegia of lower limb affecting right dominant side; I50.9 Heart failure, unspecified; K21.9 Gastro-esophageal reflux disease without esophagitis; Z82.49 Family history of ischemic heart disease and other diseases of the circulatory system; Z86.73 Personal history of transient ischemic attack (TIA), and cerebral infarction without residual deficits; Z93.1 Gastrostomy status; I11.0 Hypertensive heart disease with heart failure; Z20.822 Contact with and (suspected) exposure to COVID-19; R74.01 Elevation of levels of liver transaminase levels; E11.51 Type 2 diabetes mellitus with diabetic peripheral angiopathy without gangrene; R23.4 Changes in skin texture; B96.20 Unspecified Escherichia coli [E. coli] as the cause of diseases classified elsewhere; L89.156 Pressure-induced deep tissue damage of sacral region; S41.001A Unspecified open wound of right shoulder, initial encounter; X58.XXXA Exposure to other specified factors, initial encounter; Y93.89 Activity, other specified; Y92.89 Other specified places as the place of occurrence of the external cause; Y99.8 Other external cause status; Z51.5 Encounter for palliative care; Z68.23 Body mass index [BMI] 23.0-23.9, adult
CPT/HCPCS: 36415; 36600; 70551; 71045; 80048; 80053; 80202; 81003; 82040; 82270; 82375; 82805; 82962; 83605; 83880; 84134; 84484; 85025; 86850; 86900; 86920; 87070; 87077; 87186; 93005; 93923; 93970; 94002; 94003; 94640; 99291; C9803; J0692; J0696; J1100; J1450; J1815; J1953; J1956; J2543; J2930; J3370; J3490; J7030; J7040; J7060; P9016; U0003

== ENCOUNTER 2024-03-28 10:00 | Emergency (ER) | payer MEDICAID, OTHER ==
[2024-03-28] VITALS (8 sets, daily range): BP systolic 158; BP diastolic 98; PULSE 72–105; RESP 14–22; TEMP 37.11408; O2SAT 95–100
[~2024-03-28] VITALS: Ht 167.6 cm; Wt 57.0 kg
[~2024-03-28 10:00] MED LIST: ACET-2128 GT; ALBU6.7H15 INH; AMLO5TAB88 GT; ASCO-339 GT; ATOR40TA70 GT; BISA10SU62 RC; CLON-493 GT; DOCU-138 GT; GLUC1KIT IM; HYDR-4346 GT; HYDR100T11 GT; INSU100V43 SQ; IPRA3AMP9 HHN; LEVE500T98 GT; LORA2DIS5 GT; MOM GT; MULT-1146 GT; NA P230E RC; ONDA4TAB5 GT; P20 GT; PROT40 GT; QUET100T GT
[2024-03-28] MEDS: LIDOCAINE HCL 1% 20ML VIAL INFIL ONE (10:50)
[2024-03-28 11:19] LABS: BASOPHILS % 0.1 % (0.0-2.0); EOSINOPHILS % 6.3 % (0.0-5.0); HEMATOCRIT. 23.8 % (42.0-52.0); HEMOGLOBIN. 7.7 g/dL (14.0-18.0); LYMPHOCYTES % 12.2 % (20.0-50.0); MEAN CORPUSCULAR HEMOGLOBIN 31.7 pg (28.0-32.0); MEAN CORPUSCULAR HGB CONC 32.3 g/dL (31.0-37.0); MEAN CORPUSCULAR VOLUME 98.3 fL (80.0-94.0); MEAN PLATELET VOLUME 7.5 fl (7.4-10.4); MONOCYTES % 4.4 % (2.0-8.0); PLATELET 349 x1000/uL (130-400); RED BLOOD CELL COUNT 2.42 mill/uL (4.7-6.1); RED CELL DISTRIBUTION WIDTH 14.1 % (11.6-14.6); WHITE BLOOD COUNT 13.7 x1000/uL (4.5-11.0)
[2024-03-28 11:26] LABS: CALCIUM 9.3 mg/dL (8.7-10.4)
[2024-03-28 11:45] LABS: CREATININE 2.6 mg/dL (0.6-1.3)
[2024-03-28] MEDS ORDERED: CIPR3.5O LEFTEYE ×2 (13:10→13:14)
== END 2024-03-28 20:16 ==
LOC: ER 10:00
DX: S01.312A Laceration without foreign body of left ear, initial encounter (principal); J96.10 Chronic respiratory failure, unspecified whether with hypoxia or hypercapnia; D64.9 Anemia, unspecified; I48.91 Unspecified atrial fibrillation; K21.9 Gastro-esophageal reflux disease without esophagitis; J44.9 Chronic obstructive pulmonary disease, unspecified; I10 Essential (primary) hypertension; E78.00 Pure hypercholesterolemia, unspecified; E11.9 Type 2 diabetes mellitus without complications; F20.9 Schizophrenia, unspecified; Z86.73 Personal history of transient ischemic attack (TIA), and cerebral infarction without residual deficits; Z88.8 Allergy status to other drugs, medicaments and biological substances; Z79.899 Other long term (current) drug therapy; X58.XXXA Exposure to other specified factors, initial encounter; Y93.89 Activity, other specified; Y92.89 Other specified places as the place of occurrence of the external cause; Y99.8 Other external cause status
CPT/HCPCS: 80048; 82962; 85025; 36415; 12011; 99283; J3490; Z7610; 94003; 99285